=== PATIENT | male | born 1950 ===

== ENCOUNTER → 2020-08-28 09:43 | Outpatient (BNVA) | payer BC, MEDICARE, SELFPAY | PROVIDERS: PCP Internal Medicine; Visit Provider Hospitalist ==

== ENCOUNTER 2020-12-30 07:51 | Outpatient (REF) | payer BC, MEDICARE, SELFPAY ==
[2020-12-30 08:55] LABS: ABG pCO2 TC 42 mmHg (32-45); ABG pH TC 7.42 (7.35-7.45); ABG pO2 TC 76 (83-108)
[2020-12-30 08:56] LABS: ABG Refer to POC result; ABG HCO3 28 mmol/L (22-26)
--- NOTE | 2020-12-30 15:14 | PFT_ITS ---
Forced vital capacity moderately reduced. FEV1, [id number], and MVV are all markedly reduced. Post bronchodilator therapy, there is significant improvement in FVC, FEV1, and [id number]. Total lung capacity is normal. Residual volume moderately increased. Diffusion capacity is markedly decreased. CONCLUSION: Severe obstructive airway disorder. Good response to bronchodilator therapy. These findings are consistent with asthma/COPD overlap syndrome. Diffusion capacity is markedly decreased consistent with pulmonary emphysema. Clinical correlation is recommended. Misty Yancey MD MSB/MODL / [id number]
== END 2020-12-30 07:52 | disposition home or self-care (01) ==
LOC: HO.RESP 07:51
PROVIDERS: PCP Internal Medicine; Visit Provider Hospitalist
DX: J44.9 Chronic obstructive pulmonary disease, unspecified (principal)
CPT/HCPCS: 36600; 82803; 94060; 94727; 94729

== ENCOUNTER 2021-01-20 07:21 | Outpatient (REF) | payer BC, MEDICARE, SELFPAY ==
--- NOTE | ~2021-01-20 | CT_ITS ---
EXAMINATION: CT CHEST WITHOUT CONTRAST CLINICAL INFORMATION: Other nonspecific abnormal finding of lung field. COMPARISON: CT chest from 02/07/2020 and 06/14/2019. TECHNIQUE: Multidetector volumetric CT imaging of the chest was done. Axial MIP volume rendering provided. Sagittal and coronal reformatted images were obtained. This CT examination was performed using dose optimization techniques as appropriate, variously including the following: *Automated exposure control *Adjustment of mA and/or kV according to patient size (this includes techniques or standardized protocols for targeted exams where dose is matched to indication/reason for exam; i.e. extremities or head) *Use of iterative reconstruction technique DLP: 308 mGy-cm FINDINGS: RECORDING ARTIST: Unremarkable. LUNGS: Moderate changes of centrilobular emphysema are again noted. There is stable atelectasis or scarring in the lingula. A few scattered punctate bilateral calcified granulomas are noted. A 2 mm subpleural nodule in the right upper lobe (series 4, image 237), is unchanged. A 5 mm nodule in the right upper lobe (image 285) is unchanged. An 8 mm nodule in the superior segment of the right lower lobe (image 463) is unchanged. A 5 mm nodule in the posterior right lower lobe (image 532) is unchanged. There is a possible new tiny 3 mm semisolid nodule in the right lower lobe (image 502). A possible 4 mm nodule in the left upper lobe (image 311) is unchanged. MEDIASTINUM: There is no mediastinal or hilar adenopathy. Prominent atherosclerotic calcifications in the thoracic aorta and coronary arteries are again noted. The thyroid gland is unremarkable. PLEURA: There is no pleural effusion. No pleural mass or thickening. AXILLA: No lymphadenopathy. UPPER ABDOMEN: Unremarkable. OSSEOUS STRUCTURES: There has been interval healing of a T8 vertebral body compression fracture. A possible hemangioma in the T8 vertebral body is again noted and unchanged. CT/CT chest wo con IMPRESSION: 1. Possible new tiny 3 mm semisolid nodule in the right lower lobe. Otherwise, no significant interval change in bilateral pulmonary nodules. Recommend attention on follow-up. 2. No significant change in moderate centrilobular emphysema. 3. Interval healing of a T8 vertebral body fracture.
== END 2021-01-20 07:22 | disposition home or self-care (01) ==
LOC: HO.CT 07:21
PROVIDERS: Visit Provider Hospitalist
DX: R91.8 Other nonspecific abnormal finding of lung field (principal)
CPT/HCPCS: 71250

== ENCOUNTER → 2021-06-25 10:44 | Outpatient (BNVA) | payer BC, MEDICARE, SELFPAY | PROVIDERS: PCP Hospitalist; Visit Provider Hospitalist | DX: J45.909 Unspecified asthma, uncomplicated (principal) | CPT/HCPCS: 94618 ==

== ENCOUNTER 2021-09-01 09:00 | Outpatient (REF) | payer BC, MEDICARE, SELFPAY ==
--- NOTE | ~2021-09-01 | CT_ITS ---
EXAMINATION: CT CHEST WITHOUT CONTRAST CLINICAL INFORMATION: 71-year-old male with pulmonary nodule COMPARISON: 01/20/2021 and 02/07/2020 TECHNIQUE: Multidetector volumetric CT imaging of the chest was done. Axial MIP volume rendering provided. Sagittal and coronal reformatted images were obtained. This CT examination was performed using dose optimization techniques as appropriate, variously including the following: *Automated exposure control *Adjustment of mA and/or kV according to patient size (this includes techniques or standardized protocols for targeted exams where dose is matched to indication/reason for exam; i.e. extremities or head) *Use of iterative reconstruction technique DLP: 297 mGy-cm FINDINGS: STEP FINISHER: Unremarkable LUNGS: There are changes of emphysema and COPD with large bulla in the right middle lobe. There is a growing right upper lobe nodule seen on image 26 series 4, measures 0.8 x 0.8 x 0.8 cm. The nodule in the right lower lobe adjacent to the fissure is stable. There is new 3 mm nodule in the right lower lobe and stable punctate subpleural nodule in the right MEDIASTINUM: There is no mediastinal lymphadenopathy. There is no cardiomegaly or pericardial effusion. PLEURA: There is no pleural effusion. No pleural mass or thickening. AXILLA: No lymphadenopathy. UPPER ABDOMEN: Unremarkable. OSSEOUS STRUCTURES: Unremarkable. CT/CT chest wo con IMPRESSION: Changes of emphysema with multiple lung nodules. Growing right upper lobe nodule measured 0.8 cm and new 3 mm nodule. Fleischner guidelines were followed.
== END 2021-09-01 09:01 | disposition home or self-care (01) ==
LOC: HO.CT 09:00
PROVIDERS: PCP Family Medicine; Visit Provider Hospitalist
DX: R91.8 Other nonspecific abnormal finding of lung field (principal)
CPT/HCPCS: 71250

== ENCOUNTER → 2021-09-23 09:30 | Outpatient (BNVA) | payer BC, MEDICARE, SELFPAY | PROVIDERS: PCP Family Medicine; Visit Provider Hospitalist | DX: J45.909 Unspecified asthma, uncomplicated (principal) | CPT/HCPCS: 94618 ==

== ENCOUNTER 2021-10-21 11:18 | Outpatient (REF) | payer BC, MEDICARE, SELFPAY ==
--- NOTE | ~2021-10-21 | PE_ITS ---
EXAMINATION: PET/CT SKULL TO THIGH CLINICAL INFORMATION: Right upper lobe increasing nodule. Stable right lower lobe nodules. COMPARISON: CT chest 09/01/2021. TECHNIQUE: Following intravenous administration of 20.1 mCi of F-18 FDG in the left antecubital vein, whole-body emission scan was obtained approximately 60 minutes later. 3.[address] transmission scan was obtained without oral or IV contrast for correlative imaging. 3-D and color fusion images were obtained on a separate workstation. Baseline glucose measures 104. DLP is 988 mGy-cm. FINDINGS: SKULL BASE AND NECK: There is no abnormal FDG uptake seen in the skull base, intracranial visualized brain parenchyma or the neck. On CT, the lateral ventricles are symmetrical. No brain parenchymal abnormality seen. The paranasal sinuses are clear. Both bony orbits, optic globe and optic nerve are stable. No abnormal neck lymph nodes or mass seen. Visualized salivary glands are stable. The nasopharynx and nasal cavity airway are widely patent. CHEST: Previously visualized right upper lobe posterior segment nodule is visualized measuring 8 mm. There is mild metabolic activity measuring 1.69, similar to background. Lesion seen in the right lower lobe adjacent to the major fissure has resolved and is not visualized on the PET or the CT exam. Additional nodules seen in the right lower lobe on previous CT axial image 45/4 and axial image 49/4 are not visualized on the present PET study. No abnormal metabolic activity seen in either nodule. No abnormal activity seen in the mediastinum or the axilla. On CT, there is diffuse centrilobular emphysema with bullous changes in the right middle lobe. There is atelectatic changes or scarring left upper lobe lateral segment, right middle lobe and lingula. The mediastinum appears unremarkable. There is no pleural effusion. ABDOMEN AND PELVIS: There is no abnormal metabolic activity seen in the abdomen and pelvis. Normal metabolic activity seen in the kidneys and bladder. Nonspecific metallic activity seen in the sigmoid colon. On CT, there is diffuse colonic diverticulosis, most prominent in the sigmoid region with mild mural thickening. No pericolic fat stranding seen. Visualized liver, spleen, pancreas and bilateral adrenal glands are unremarkable. There are no radiopaque gallstones. There is a punctate radiopaque density midpole right kidney, question tiny stone, on axial slice 107/2. MSK: There is mild ventral spondylosis lower dorsal and upper lumbar spine. No aggressive lytic or sclerotic process. No abnormal FDG activity seen. PET/PET CT fusion skull to thigh IMPRESSION: There are at least 3 nodules seen in the right lung which are not metabolically active on the PET study. There is an 8 mm nodule right upper lobe axial image 187/2 and a punctate nodules in the right lower lobe on axial image 156/2 and 148/2. These nodules are not metabolically active. The other nodule described on the previous CT chest in the right lower lobe adjacent to major fissure has resolved and is not visualized. There is focal emphysematous bulla in right middle lobe. There is diffuse emphysema. Diffuse colonic diverticulosis with mild FDG activity diverticulosis, less likely diverticulitis.
== END 2021-10-21 11:19 | disposition home or self-care (01) ==
LOC: HO.PET 11:18
PROVIDERS: PCP Family Medicine; Visit Provider Hospitalist
DX: Z13.89 Encounter for screening for other disorder (principal)

== ENCOUNTER 2021-12-14 07:24 | Outpatient (REF) | payer BC, MEDICARE, SELFPAY ==
--- NOTE | ~2021-12-14 | CT_ITS ---
EXAMINATION: CT CHEST WITHOUT CONTRAST CLINICAL INFORMATION: Abnormal lung finding. Followup lung nodules. COMPARISON: PET/CT exam 10/21/2021. TECHNIQUE: Multidetector volumetric CT imaging of the chest was done. Axial MIP volume rendering provided. Sagittal and coronal reformatted images were obtained. This CT examination was performed using dose optimization techniques as appropriate, variously including the following: *Automated exposure control *Adjustment of mA and/or kV according to patient size (this includes techniques or standardized protocols for targeted exams where dose is matched to indication/reason for exam; i.e. extremities or head) *Use of iterative reconstruction technique DLP: 291 mGy-cm FINDINGS: PARTS EXPEDITER: Unremarkable. LUNGS: Previously seen right upper lobe 8 mm nodule is again visualized and measures 8 mm on axial image 246/7. It is unchanged in size from previous PET/CT exam and CT chest exam, as well. A 2 mm linear density subpleural location right upper lobe axial image 197/7 is stable. A triangular-shaped 6 mm nodule adjacent to the major fissure in right lower lobe is stable. There is dense lingular band-like atelectasis. A 4 mm nodule right lower lobe axial image 446/7 and a 6 mm nodule right lung base axial image 476/7. One of the 2 nodules was visualized on image 46/4 on 09/01/2021. Medially located second nodule was visualized on the PET study 10/21/2021. There is mild centrilobular emphysema. MEDIASTINUM: The heart size and the great vessels are normal caliber. The thyroid lobes are symmetric and normal. The central trachea and bronchi are widely patent. No abnormal sized mediastinal lymph nodes seen. There is mild coronary artery calcifications present. No pericardial effusion seen. PLEURA: There is no pleural effusion. No pleural mass or thickening. AXILLA: Small shotty lymph nodes seen in the axilla. The chest wall is unremarkable. UPPER ABDOMEN: The visualized liver, spleen, pancreas, bilateral adrenal glands, and kidneys are unremarkable. There is colonic diverticulosis without diverticulitis. OSSEOUS STRUCTURES: There is moderate spondylosis of lower dorsal and upper lumbar spine. CT/CT chest wo con IMPRESSION: Mild centrilobular emphysema with pulmonary nodules. The 2 right lower lobe pulmonary nodules are visualized either on the last PET/CT study 10/21/2021 or 09/01/2021 CT chest. These nodules are better visualized on the present exam and may be minimally increased in size. However, there is no FDG uptake seen on the PET study. Recommend continued CT chest followup. Fleischner guidelines were followed.
== END 2021-12-14 07:25 | disposition home or self-care (01) ==
LOC: HO.CT 07:24
PROVIDERS: PCP Family Medicine; Visit Provider Hospitalist
DX: R91.8 Other nonspecific abnormal finding of lung field (principal)
CPT/HCPCS: 71250

== ENCOUNTER 2022-06-04 07:52 | Outpatient (REF) | payer BC, MEDICARE, SELFPAY ==
--- NOTE | ~2022-06-04 | CT_ITS ---
EXAMINATION: CT CHEST WITHOUT CONTRAST CLINICAL INFORMATION: Pulmonary nodule COMPARISON: Chest CT 12/14/2021 TECHNIQUE: Multidetector volumetric CT imaging of the chest was done. Axial MIP volume rendering provided. Sagittal and coronal reformatted images were obtained. This CT examination was performed using dose optimization techniques as appropriate, variously including the following: *Automated exposure control *Adjustment of mA and/or kV according to patient size (this includes techniques or standardized protocols for targeted exams where dose is matched to indication/reason for exam; i.e. extremities or head) *Use of iterative reconstruction technique DLP: 264 mGy-cm FINDINGS: The heart is normal in size. Coronary calcifications are present. There is no pericardial effusion. Normal caliber thoracic aorta. A few normal-sized mediastinal lymph nodes appear similar. No gross hilar lymphadenopathy. No pathologically enlarged axillary lymph nodes. Central airways are patent. Lungs are well aerated. Mild emphysematous changes are noted. Similar atelectasis versus scarring within the lingula and right middle lobe. A few previously visualized subcentimeter pulmonary nodules are stable, the largest remains an 8 mm right upper lobe pulmonary nodule. No new suspicious pulmonary nodules visualized. Visualized portions of the upper abdomen are grossly unremarkable. Moderate diffuse degenerative changes of the spine. CT/CT chest wo IV con IMPRESSION: A few previously visualized subcentimeter pulmonary nodules are stable, the largest remains an 8 mm right upper lobe pulmonary nodule. No new suspicious pulmonary nodules visualized. Fleischner guidelines were followed.
== END 2022-06-04 07:53 | disposition home or self-care (01) ==
LOC: HO.CT 07:52
PROVIDERS: Visit Provider Hospitalist
DX: R91.8 Other nonspecific abnormal finding of lung field (principal)
CPT/HCPCS: 71250

== ENCOUNTER 2022-06-08 08:49 | Outpatient (REF) | payer BC, MEDICARE, SELFPAY ==
--- NOTE | 2022-06-08 10:56 | PFT_ITS ---
Forced vital capacity 41%, FEV1 of 20%, FEV1/FVC ratio 36. LLE89-47 is 35% and MVV 20%. Post bronchodilator therapy, there is a significant improvement in all flow volumes. Total lung capacity 94%. Residual volume 181%. Diffusion capacity 40%. CONCLUSION: Very severe obstructive airway disorder with evidence of air trapping. There is an excellent response to bronchodilator therapy, but it did not result in complete reversibility. These findings are consistent with asthma/COPD overlap syndrome. Clinical correlation is recommended. MD OSBALDO Walker/MODL / [id number]
== END 2022-06-08 08:50 | disposition home or self-care (01) ==
LOC: HO.RESP 08:49
PROVIDERS: Visit Provider Hospitalist
DX: R91.8 Other nonspecific abnormal finding of lung field (principal)
CPT/HCPCS: 94060; 94727; 94729

== ENCOUNTER → 2022-06-30 08:24 | Outpatient (BNVA) | payer BC, MEDICARE, SELFPAY | PROVIDERS: PCP Family Medicine; Visit Provider Hospitalist | DX: J45.909 Unspecified asthma, uncomplicated (principal) ==

== ENCOUNTER → 2022-10-13 08:56 | Outpatient (BNVA) | payer MEDICARE, BC, SELFPAY | PROVIDERS: PCP Family Medicine; Visit Provider Nurse Practitioner Family ==

== ENCOUNTER 2022-11-02 07:20 | Outpatient (REF) | payer BC, MEDICARE, SELFPAY ==
--- NOTE | ~2022-11-02 | CT_ITS ---
EXAMINATION: CT CHEST WITHOUT CONTRAST CLINICAL INFORMATION: Pulmonary nodule. COMPARISON: Multiple priors, most recently chest CT 06/04/2022. TECHNIQUE: Multidetector volumetric CT imaging of the chest was done. Axial MIP volume rendering provided. Sagittal and coronal reformatted images were obtained. This CT examination was performed using dose optimization techniques as appropriate, variously including the following: *Automated exposure control *Adjustment of mA and/or kV according to patient size (this includes techniques or standardized protocols for targeted exams where dose is matched to indication/reason for exam; i.e. extremities or head) *Use of iterative reconstruction technique DLP: 307 mGy-cm FINDINGS: LUNGS: Moderate centrilobular emphysema. Airway wall thickening consistent with chronic airways disease. No consolidation. Scarring in the lingula. 8.5 mm average diameter nodule in the right upper lobe series 5 image 228 is stable. 6 mm nodule right lower lobe series 5 image 408 is stable. 4 mm subpleural nodule right lower lobe series 5 image 499. Additional scattered nodules are stable. MEDIASTINUM: No adenopathy. No pericardial effusion. CORONARY ARTERY CALCIFICATION: Present. Mild three-vessel calcium. PLEURA: There is no pleural effusion. No pleural mass or thickening. AXILLA: No lymphadenopathy. UPPER ABDOMEN: Unremarkable. OSSEOUS STRUCTURES: Degenerative changes in the spine. CT/CT chest wo IV con IMPRESSION: Emphysema. Stable 8.5 mm average diameter nodule in the right upper lobe. Additional 6 mm nodule and scattered nodules seen previously are stable. New 4 mm nodule right lower lobe. Recommend continued chest CT follow-up. Fleischner guidelines were followed.
== END 2022-11-02 07:21 | disposition home or self-care (01) ==
LOC: HO.CT 07:20
PROVIDERS: PCP Family Medicine; Visit Provider Hospitalist
DX: R91.8 Other nonspecific abnormal finding of lung field (principal)
CPT/HCPCS: 71250

== ENCOUNTER 2022-12-29 08:14 | Outpatient (AMB) | payer BC, MEDICARE, SELFPAY ==
--- NOTE | 2022-12-29 08:24 | MHC.OFFVIS ---
Intake Vital Signs 12/29/22 08:29 Height 5 ft 10 in Weight 240 lb BMI 34.4 Pulse 82 Pulse Source Pulse Oximeter Pulse Oximetry (%) 85 L Oxygen Delivery Method Room Air Intake Visit Reasons: COPD Health Information Coder Required: No Allergies No Known Allergies Allergy (Verified 12/29/22 08:30) HPI HPI Comments History of Present Illness Details The patient is a 72-year-old gentleman known COPD, ELVIA on PAP therapy and tobacco dependency. He also has underlying pulmonary nodules that we have been following. His last CT scan of the chest at [facility] was done in September of 2018. His largest nodule measured 8 mm at that time. Also the nodule appeared to be subsolid nature. Recently he had a fall after losing consciousness. He did injure his lung on the right side with some increased work of breathing. He continues to smoke unfortunately. The patient was recently evaluated at [facility] for lower extremity swelling and shortness of breath. He had an ultrasound of his right lower extremity which demonstrated no evidence of any DVT and had a CT angiogram of the chest burning up pulmonary embolism. However, the nodule appeared to be more solid in nature now measuring 9 mm. This is concerning for a both change in growth and change in appearance in a short period of time. The patient does smoke and does have increased risk factors for cancer. At this point I will request a PET scan to further evaluate this nodule. At this point will going to go ahead and order her oxygen through a [employer] company for him to be able to use the oxygen with activity. The patient needs better portability. Will provide him with a conserving device trial in order for him to get smaller tanks. His PET scan was denied from his your insurance company for the 9 mm nodule for unclear reason. At this point the patient should get a CAT scan 3 months from his prior CT scan in March 16. If the nodule is larger in size and we need to get a PET scan at that time. 07/11/2019 The patient is here for pulmonary follow-up visit. Overall he is doing well. He has tried to quit smoking. He is very motivated. Since he trying to quit smoking he has gained over 10 lb. He is down to 5 cigarettes a day. He is going to start walking and exercising more. He does have the oxygen. He needs to use the oxygen with activity in exercise to improve his exercise capacity. He has been using his respiratory therapy. We did repeat a CT scan of the chest since his PET scan was denied. It appeared that the nodules decreased in size largest nodule measuring now 6 mm. His next CAT scan should be 6-12 months so therefore we doing around 8 months. He has been using the BiPAP. The BiPAP therapy has been affecting beneficial. He uses for more than 4 hours a night. He did get a new mask and is getting used to it. 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 Appears to be improving his ectopy. He also had an EKG or some type of cardiac study that document that he probably had an old myocardial infarction. Clinically is doing well. 02/20/2020 the patient is here for pulmonary follow-up visit. Overall the patient has been doing okay. He continues to have productive cough moderate severity. He is on maximum respiratory therapy with only partial resolution of the symptoms. He is participating back in pulmonary rehabilitation which has been helpful for him. At this point based on his frequent exacerbations in chronic bronchitis he will benefit from Daliresp. In addition to that he will need a nebulizer treatment to improve his respiratory status and mucus clearance. He has been using the CPAP. The CPAP therapy has been affecting beneficial. He has been using more than 4 hours a night. We did review his CT scan of the chest demonstrating stable pulmonary nodules. We did review it ourselves demonstrating moderate degree of emphysema. The patient is still struggling to quit completely from the smoking. He knows he needs to quit and will continue cutting down. 08/28/2020 the patient is here for pulmonary follow-up visit. He continues to have shortness of breath. He has been noticing improvement when he uses the nebulizer. He is trying to use it once or twice a day. We went over his medications as far as his inhalers and did provide a scheduled for him that he could take home. In the meantime the patient has gained some weight. He understands the weight gain is going to make his breathing worse. Is going to start exercising walking. He still tries to continues to cut down the smoking. Addition to has been using the BiPAP. The BiPAP therapy has been affecting beneficial. He is wondering if he needs a noninvasive ventilator. I have reassured him does not have to be the case. Will have him get a pulmonary function study with a blood gas to assess his pCO2. If his pCO2 is elevated we consider noninvasive ventilator. 12/30/2020 the patient is here for a pulmonary follow-up visit. Since we last spoke the patient has been struggling with the of his niece. This is very hard for him. In the meantime continues to have shortness of breath and dyspnea on exertion. Usually his symptoms are moderate severity. However, it to get better when he rests. The patient is really not interested in oxygen right now specially with everything going on although he may be interested in the future. Right now is still able to do the things he likes to do without any of oxygen. We did review his recent pulmonary function studies demonstrating a very severe obstruction in addition to an ABG demonstrating a normal gas exchange with a decrease in the PaO2. but, is reassuring that his CO2 is within normal limits on his BIPAP. Therefore, will continue with current respiratory regimen. in the meantime we did discuss his last CT scan of the chest that he had back in January 2020 demonstrating pulmonary nodules. The patient is high risk for cancer therefore, I will request a repeat CT scan of the chest the fall 2020 follow up the pulmonary nodules then. 06/25/2021 the patient is here for hospital follow-up visit. Patient apparently developed significant chills and rigors. He was admitted to [facility] where he was found to have an E coli bacteremia. The source of the bacteremia still not clear. He still getting antibiotics. Part of the workup included a CT scan of the chest and also the abdomen and pelvis. Appeared that he had a new irregular shape 1 cm nodular density in the right hemithorax. We did compared to his previous CT scan that he had over the summer and this area is definitely new. The other nodules were in their present. It appeared that this area could be a localized infection. Explained to the patient that is very unlikely that it started as a primary E coli pneumonia. In the meantime he was prescribed oxygen. We did go for walking oximetry today. The patient did not qualify for a conserving tank as of yet. But at least he can use the oxygen just with activity. He does have a pulse oximeter and he can make sure that his level stay within 90%. I will send a medications to the pharmacy. A him come back in 3 months time and have a repeat CT scan to address the new 1 cm irregular nodular density. 09/23/2021 the patient is here for pulmonary follow-up visit. Overall he is starting to feel better. He still having some shortness of breath. He has actually gained some weight. He did have reviewed CT scan of the chest. We did review multiple scans including the CT scan from [place] from December 2020 where he did not have any significant findings on the right upper lobe. Subsequently after they had a CT scan a [facility] sometime in May 2021 when he had of severe E coli sepsis and he had a a cm irregular shaped nodular density in the right upper lobe. Now we did compared does CT scans the CT scan he just had August 2021 demonstrating a 0.8 mm pulmonary nodule. It appears to be circumscribed and less irregular when compared to the CT scan from [facility]. It also appears to be just slightly smaller when compared to the CT scan from [facility]. The patient does have extensive emphysema in that area as well. based on the fact that the nodule appears to be slightly smaller and shirt cleaner when compared to the CT scan from [facility] just a couple months ago will go ahead and plan to repeat the CT scan in 3-4 months. The patient does have high risk for pneumothorax and also has significant and is already on oxygen making the idea of an aggressive resection difficult. Will go ahead and% among conference but at this point the plan will be to repeat the CT scan in the coming months to assess further. 01/06/2022 the patient is here for a pulmonary follow-up visit. Overall he is doing about the same. Continues to have dyspnea on exertion moderate severity. He is on a good respiratory regimen. He does get response from the therapy. He would like to continue on his current therapy. He does uses nebulizer 3 to 4 times a day which does help. He was open to get a June system to better administer the nebulized therapy. We will request from from the [employer]. He continues use the BiPAP at nighttime. The air leaks out from the mass sometimes. The patient may benefit from new mask. He continues use the oxygen with activity. The patient needs to use it more regularly. He also needs to start exercising more regularly. He will do so and we will use the oxygen during those times. We did review his CT scan of the chest which is about the same as far as the right lower lobe pulmonary nodules. The patient will have a repeat CT scan in 6 months. Will also check his PFTs. 06/30/2022 the patient is here for a pulmonary follow-up visit. He continues to have dyspnea on exertion. Moderate severity. He is supposed to be using the oxygen but he does not like to use his oxygen tanks. He is trying to get a portable oxygen concentrator that can handle to 3 L pulse. We did talk about different devices. In the meantime I explained to him that the fact that he does not have his oxygen could result in catastrophic cardiac or cerebellar complications. The patient also continues smoking cigarettes. He understands that his respiratory capacity is only getting worse. The cigarettes are going to continue to make it even worse. He did have pulmonary function studies with an FEV1 of only 30% predicted after bronchodilator effect. It is consistent with very severe COPD picture. We also reviewed his last CT scan of the chest demonstrating his 8 mm pulmonary nodule has not changed in size. Other nodules appear to be stable. Based on the size in his risk will go ahead and repeat the CT scan in 6 months. 12/29/2022 the patient is here for a pulmonary follow-up visit. He continues to have shortness of breath. He has been using the oxygen. He is also using the BiPAP at nighttime. The PAP therapy continues to be affecting beneficial. The nebulizer as well. His nebulizer equipment is broken. I will supply him with 1. He still getting supplies also from [employer]. He does have a nebulizer for map is about 2 to 3 years old. If the machine stops working he will cough in order to send another script. The patient did have a CT scan sometime in October. The pulmonary nodules are stable. When follow-up in 6 months and discuss his next CT scan. The patient did have a new 4 mm pulmonary nodule. He also has extensive emphysema. He has a large bolus in the right lower lobe measuring close to 10 cm in size. [facility] Medical History (Updated 10/13/22 @ 09:58 by Naomie Nicholson NP) COPD (chronic obstructive pulmonary disease) ELVIA treated with BiPAP Pulmonary nodule Pulmonary nodules Tobacco dependence Social History (Updated 06/25/21 @ 10:59 by RAMANA Mcfadden) Patient Tobacco Use Status: Former Tobacco user Tobacco use type: Cigarette Years Smoked: 12 years old Review of Systems Const Denies night sweats and Reports weight gain ENT Denies change in voice, Denies lip swelling, Denies mouth pain, Reports nasal congestion, Reports nasal discharge and Denies tongue swelling Card Denies chest pain and Reports dyspnea on exertion Resp Reports cough and Reports dyspnea on exertion GI Denies abdominal pain Musc Denies no additional complaints Neuro Denies Neuro-related abnormal movements Psych Denies no additional complaints Romeo/Lymph Denies easy bleeding and Denies lymphadenopathy Aller/Immun Denies lip swelling and Denies tongue swelling Physical Exam Vital Signs: Last Vital Signs Pulse 82 12/29/22 08:29 Pulse Ox 85 L 12/29/22 08:29 Oxygen Delivery Method Room Air 12/29/22 08:29 BMI result Body Mass Index 34.4 Const General: alert Neck Neck: Yes normal visual inspection, Yes full ROM and Yes no lymphadenopathy Chest Chest palpation & inspection: normal inspection of the chest Resp Auscultation: no wheezes and diminished lung sounds Cardio Rate: regular rate Rhythm: regular rhythm Heart sounds: S1 normal heart sound present and S2 normal heart sound present GI Palpation (GI): Soft to palpation and nontender Auscultation: normal bowel sounds Skin General skin exam: rashes and/or lesions noted Assessment & Plan Assessment & Plan (1) Pulmonary nodules: Code(s): R91.8 - Other nonspecific abnormal finding of lung field (2) Tobacco dependence: Code(s): F17.200 - Nicotine dependence, unspecified, uncomplicated (3) ELVIA treated with BiPAP: Code(s): G47.33 - Obstructive sleep apnea (adult) (pediatric) (4) COPD (chronic obstructive pulmonary disease): Comment: extensive emphysema, FEV1 30% Code(s): J44.9 - Chronic obstructive pulmonary disease, unspecified Qualifiers: COPD type: emphysema Emphysema type: centrilobular Qualified Code(s): J43.2 - Centrilobular emphysema Plan continue Breztri continue DuoNeb as needed requesting june system continue Combivent Tobacco cessation restart Daliresp Continue BIPAP at night continue oxygen with activity. Repeat CT scan of the chest in 12 months or sooner if any worsening symptoms follow-up in 6 months Orders: Orders CT chest wo IV con 10/24/23 R91.8 - Other nonspecific abnormal finding of lung field Medications: Refilled albuterol sulfate 90 mcg/actuation 2 puffs inhalation Q4H PRN 8.5 ea 11RF for wheezing albuterol sulfate 2.5 mg (3 mL) inhalation Q6H PRN 150 mL 11RF for wheezing J41.8 - Mixed simple and mucopurulent chronic bronchitis bfhkrnazlp-cuthzbnk-qrxtwywygz 160-9-4.8 mcg/actuation (Breztri Aerosphere) 2 inhalations inhalation BID 10.7 grams 11RF 30 days Discontinued Symbicort 160-4.5 mcg/actuation (budesonide-formoterol) Discontinued Reason: Doctor's Order 2 puffs PO BID 10.2 ea 11RF NS Quality Reporting (2019) Adult ([facility] 13807/14/68) Smoking risk assessment performed?: Yes Patient Tobacco Use Status: Former Tobacco user Coding Level of Care Code Est Pt Level 4 (72323) Diagnoses Pulmonary nodules R91.8 Tobacco dependence F17.200 ELVIA treated with BiPAP G47.33 COPD (chronic obstructive pulmonary disease) J43.2 COPD type: emphysema Emphysema type: centrilobular Time Spent (min) 18
[2022-12-29 08:29] VITALS: PULSE 82; O2SAT 85; BMI 34.4
== END 2022-12-29 08:52 | disposition home or self-care (01) ==
PROVIDERS: PCP Family Medicine; Visit Provider Hospitalist
DX: R91.8 Other nonspecific abnormal finding of lung field (principal); F17.200 Nicotine dependence, unspecified, uncomplicated; G47.33 Obstructive sleep apnea (adult) (pediatric); J43.2 Centrilobular emphysema
CPT/HCPCS: 99214

== ENCOUNTER → 2022-12-29 08:14 | Outpatient (BNVA) | payer BC, MEDICARE, SELFPAY | PROVIDERS: PCP Family Medicine; Visit Provider Hospitalist | DX: J45.909 Unspecified asthma, uncomplicated (principal); J44.9 Chronic obstructive pulmonary disease, unspecified ==

== ENCOUNTER 2023-07-06 08:21 | Outpatient (AMB) | payer BC, MEDICARE, SELFPAY ==
[2023-07-06 08:26] VITALS: PULSE 81; O2SAT 88; BMI 34.4
--- NOTE | 2023-07-06 08:26 | MHC.OFFVIS ---
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 He also has underlying pulmonary nodules that we have been following. His last CT scan of the chest at [facility] was done in September of 2018. His largest nodule measured 8 mm at that time. Also the nodule appeared to be subsolid nature. Recently he had a fall after losing consciousness. He did injure his lung on the right side with some increased work of breathing. He continues to smoke unfortunately. The patient was recently evaluated at [facility] for lower extremity swelling and shortness of breath. He had an ultrasound of his right lower extremity which demonstrated no evidence of any DVT and had a CT angiogram of the chest burning up pulmonary embolism. However, the nodule appeared to be more solid in nature now measuring 9 mm. This is concerning for a both change in growth and change in appearance in a short period of time. The patient does smoke and does have increased risk factors for cancer. At this point I will request a PET scan to further evaluate this nodule. At this point will going to go ahead and order her oxygen through a [employer] company for him to be able to use the oxygen with activity. The patient needs better portability. Will provide him with a conserving device trial in order for him to get smaller tanks. His PET scan was denied from his your insurance company for the 9 mm nodule for unclear reason. At this point the patient should get a CAT scan 3 months from his prior CT scan in March 16. If the nodule is larger in size and we need to get a PET scan at that time. 06/25/2021 the patient is here for hospital follow-up visit. Patient apparently developed significant chills and rigors. He was admitted to [facility] where he was found to have an E coli bacteremia. The source of the bacteremia still not clear. He still getting antibiotics. Part of the workup included a CT scan of the chest and also the abdomen and pelvis. Appeared that he had a new irregular shape 1 cm nodular density in the right hemithorax. We did compared to his previous CT scan that he had over the summer and this area is definitely new. The other nodules were in their present. It appeared that this area could be a localized infection. Explained to the patient that is very unlikely that it started as a primary E coli pneumonia. In the meantime he was prescribed oxygen. We did go for walking oximetry today. The patient did not qualify for a conserving tank as of yet. But at least he can use the oxygen just with activity. He does have a pulse oximeter and he can make sure that his level stay within 90%. I will send a medications to the pharmacy. A him come back in 3 months time and have a repeat CT scan to address the new 1 cm irregular nodular density. 09/23/2021 the patient is here for pulmonary follow-up visit. Overall he is starting to feel better. He still having some shortness of breath. He has actually gained some weight. He did have reviewed CT scan of the chest. We did review multiple scans including the CT scan from [facility] from December 2020 where he did not have any significant findings on the right upper lobe. Subsequently after they had a CT scan a [facility] sometime in May 2021 when he had of severe E coli sepsis and he had a a cm irregular shaped nodular density in the right upper lobe. Now we did compared does CT scans the CT scan he just had August 2021 demonstrating a 0.8 mm pulmonary nodule. It appears to be circumscribed and less irregular when compared to the CT scan from [facility]. It also appears to be just slightly smaller when compared to the CT scan from [facility]. The patient does have extensive emphysema in that area as well. based on the fact that the nodule appears to be slightly smaller and shallot cleaner when compared to the CT scan from [facility] just a couple months ago will go ahead and plan to repeat the CT scan in 3-4 months. The patient does have high risk for pneumothorax and also has significant and is already on oxygen making the idea of an aggressive resection difficult. Will go ahead and% among conference but at this point the plan will be to repeat the CT scan in the coming months to assess further. 06/30/2022 the patient is here for a pulmonary follow-up visit. He continues to have dyspnea on exertion. Moderate severity. He is supposed to be using the oxygen but he does not like to use his oxygen tanks. He is trying to get a portable oxygen concentrator that can handle to 3 L pulse. We did talk about different devices. In the meantime I explained to him that the fact that he does not have his oxygen could result in catastrophic cardiac or cerebellar complications. The patient also continues smoking cigarettes. He understands that his respiratory capacity is only getting worse. The cigarettes are going to continue to make it even worse. He did have pulmonary function studies with an FEV1 of only 30% predicted after bronchodilator effect. It is consistent with very severe COPD picture. We also reviewed his last CT scan of the chest demonstrating his 8 mm pulmonary nodule has not changed in size. Other nodules appear to be stable. Based on the size in his risk will go ahead and repeat the CT scan in 6 months. 12/29/2022 the patient is here for a pulmonary follow-up visit. He continues to have shortness of breath. He has been using the oxygen. He is also using the BiPAP at nighttime. The PAP therapy continues to be affecting beneficial. The nebulizer as well. His nebulizer equipment is broken. I will supply him with 1. He still getting supplies also from [employer]. He does have a nebulizer for map is about 2 to 3 years old. If the machine stops working he will cough in order to send another script. The patient did have a CT scan sometime in October. The pulmonary nodules are stable. When follow-up in 6 months and discuss his next CT scan. The patient did have a new 4 mm pulmonary nodule. He also has extensive emphysema. He has a large bolus in the right lower lobe measuring close to 10 cm in size. 07/06/2023 the patient is here for a pulmonary follow-up visit. The patient has been doing fairly well. He has been using the oxygen at 2-3 L to maintain a pulse ox above 90%. Has been affecting beneficial. He also has been using the inhalers with good adherence. He also started Daliresp 250 mcg dose and is tolerating that well. Will go ahead and increase into the 100 mcg dose. The patient also has a CT scan from October 2022 that we did look at. It appears that he has a new nodule so will go ahead and repeat the CT scan October 2023. He is still working on smoking. He is cutting down significantly. This is reassuring. Will follow-up in 4-6 months. [facility] Medical History (Updated 10/13/22 @ 09:58 by Naomie Nicholson NP) Pulmonary nodule Pulmonary nodules Tobacco dependence ELVIA treated with BiPAP COPD (chronic obstructive pulmonary disease) Social History (Updated 06/25/21 @ 10:59 by RAMANA Mcfadden) Patient Tobacco Use Status: Former Tobacco user Tobacco use type: Cigarette Years Smoked: 12 years old Review of Systems Const Denies night sweats and Reports weight gain ENT Denies change in voice, Denies lip swelling, Denies mouth pain, Reports nasal congestion, Reports nasal discharge and Denies tongue swelling Card Denies chest pain and Reports dyspnea on exertion Resp Reports cough and Reports dyspnea on exertion GI Denies abdominal pain Musc Denies no additional complaints Neuro Denies Neuro-related abnormal movements Psych Denies no additional complaints Romeo/Lymph Denies easy bleeding and Denies lymphadenopathy Aller/Immun Denies lip swelling and Denies tongue swelling Physical Exam Vital Signs: Last Vital Signs Pulse 81 07/06/23 08:26 Pulse Ox 88 L 07/06/23 08:26 Oxygen Delivery Method Room Air 07/06/23 08:26 BMI result Body Mass Index 34.4 Const General: alert Neck Neck: Yes normal visual inspection, Yes full ROM and Yes no lymphadenopathy Chest Chest palpation & inspection: normal inspection of the chest Resp Auscultation: no wheezes and diminished lung sounds Cardio Rate: regular rate Rhythm: regular rhythm Heart sounds: S1 normal heart sound present and S2 normal heart sound present GI Palpation (GI): Soft to palpation and nontender Auscultation: normal bowel sounds Skin General skin exam: rashes and/or lesions noted Assessment & Plan Assessment & Plan (1) Pulmonary nodules: Code(s): R91.8 - Other nonspecific abnormal finding of lung field (2) Tobacco dependence: Code(s): F17.200 - Nicotine dependence, unspecified, uncomplicated (3) ELVIA treated with BiPAP: Code(s): G47.33 - Obstructive sleep apnea (adult) (pediatric) (4) COPD (chronic obstructive pulmonary disease): Comment: extensive emphysema, FEV1 30% Code(s): J44.9 - Chronic obstructive pulmonary disease, unspecified Qualifiers: COPD type: emphysema Emphysema type: centrilobular Qualified Code(s): J43.2 - Centrilobular emphysema Plan continue Breztri continue DuoNeb as needed continue Combivent Tobacco cessation increase Daliresp 500 Continue BIPAP at night continue oxygen with activity. Repeat CT scan 10/2023 follow-up in 4- 6 months Orders: Orders CT chest wo IV con 10/22/23 R91.8 - Other nonspecific abnormal finding of lung field Medications: New budesonide-formoterol 160-4.5 mcg/actuation (Symbicort) 2 puffs inhalation BID 30 days 10.2 grams 11RF roflumilast (Daliresp) 500 mcg PO DAILY 30 days 30 tabs 11RF Changed From trazodone 100 mg PO BEDTIME To trazodone 100 mg PO BEDTIME 30 days 30 tabs 11RF From Combivent Respimat 20-100 mcg/actuation (ipratropium-albuterol) 1 puff PO QID 4 grams 3RF NS To Combivent Respimat 20-100 mcg/actuation (ipratropium-albuterol) 1 puff PO QID 90 days 12 grams 3RF NS Discontinued roflumilast Discontinued Reason: Doctor's Order 250 mcg PO DAILY 28 tabs 3RF J44.9 - Chronic obstructive pulmonary disease, unspecified Quality Reporting (2019) Adult ([facility] 138/07/14/68) Smoking risk assessment performed?: Yes Patient Tobacco Use Status: Former Tobacco user Coding Level of Care Code Est Pt Level 4 (82845) Diagnoses Pulmonary nodules R91.8 Tobacco dependence F17.200 ELVIA treated with BiPAP G47.33 Centrilobular emphysema J43.2 COPD type: emphysema Emphysema type: centrilobular Time Spent (min) 17
== END 2023-07-06 08:54 | disposition home or self-care (01) ==
PROVIDERS: PCP Family Medicine; Referring Provider Family Medicine; Visit Provider Hospitalist
DX: R91.8 Other nonspecific abnormal finding of lung field (principal); F17.200 Nicotine dependence, unspecified, uncomplicated; G47.33 Obstructive sleep apnea (adult) (pediatric); J43.2 Centrilobular emphysema
CPT/HCPCS: 99214

== ENCOUNTER → 2023-07-06 08:21 | Outpatient (BNVA) | payer BC, MEDICARE, SELFPAY | PROVIDERS: PCP Family Medicine; Visit Provider Hospitalist | DX: J45.909 Unspecified asthma, uncomplicated (principal); J44.9 Chronic obstructive pulmonary disease, unspecified ==

== ENCOUNTER 2023-10-24 07:43 | Outpatient (REF) | payer BC, MEDICARE, SELFPAY ==
--- NOTE | ~2023-10-24 | CT_ITS ---
EXAMINATION: CT CHEST WITHOUT CONTRAST CLINICAL INFORMATION: Pulmonary nodules. COMPARISON: CT chest 11/02/2022. TECHNIQUE: Multidetector volumetric CT imaging of the chest was done. Axial MIP volume rendering provided. Sagittal and coronal reformatted images were obtained. This CT examination was performed using dose optimization techniques as appropriate, variously including the following: *Automated exposure control *Adjustment of mA and/or kV according to patient size (this includes techniques or standardized protocols for targeted exams where dose is matched to indication/reason for exam; i.e. extremities or head) *Use of iterative reconstruction technique DLP: 261 mGy-cm FINDINGS: LUNGS: A previously seen 5 mm subpleural right lower lobe nodular density has increased in size 9 mm and is suspicious for malignancy (5:404 compare prior 5:450). This is especially apparent on coronal imaging (see saved caballero images). There is a new 6 mm pulmonary nodule at the left apex intertwined in an area of branching vessels (5:113 and saved coronal caballero image). MEDIASTINUM: The mediastinum is normal. CORONARY ARTERY CALCIFICATION: None visualized on this study. PLEURA: There is no pleural effusion. No pleural mass or thickening. AXILLA: No lymphadenopathy. UPPER ABDOMEN: Unremarkable. OSSEOUS STRUCTURES: Unremarkable. CT/CT chest wo IV con IMPRESSION: 1. Enlarging right lower lobe pulmonary nodule now measuring 9 mm. Findings are suspicious for carcinoma. 2. New 6 mm left apical pulmonary nodule. According to the UPDATED 2017 Fleischner Society recommendations, the advised follow up imaging for a single solid nodule measuring greater than [address] at 3 months, PET/CT, or tissue sampling as clinically appropriate.
== END 2023-10-24 07:44 | disposition home or self-care (01) ==
LOC: HO.CT 07:43
PROVIDERS: PCP Internal Medicine; Visit Provider Hospitalist
DX: R91.8 Other nonspecific abnormal finding of lung field (principal)
CPT/HCPCS: 71250

== ENCOUNTER 2023-11-30 08:23 | Outpatient (AMB) | payer BC, MEDICARE, SELFPAY ==
[2023-11-30 08:30] VITALS: BP 132/60; PULSE 91; O2SAT 91; BMI 34.4
--- NOTE | 2023-11-30 08:30 | A.OFFVIS_ITS ---
Vital Signs 3 11/30/23 08:30 Height 5 ft 10 in Weight 240 lb BMI 34.4 BP 132/60 Blood Pressure Location Lt brachial Position Sitting Pulse 91 Pulse Source Pulse Oximeter Pulse Oximetry (%) 91 L Oxygen Delivery Method Room Air Intake Visit Reasons: COPD Top Screw Required: No Allergies No Known Allergies Allergy (Verified 11/30/23 08:33) HPI Comments Details: The patient is a 73-year-old gentleman known COPD, ELVIA on PAP therapy and tobacco dependency. He also has underlying pulmonary nodules that we have been following. His last CT scan of the chest at [facility] was done in September of 2018. His largest nodule measured 8 mm at that time. Also the nodule appeared to be subsolid nature. Recently he had a fall after losing consciousness. He did injure his lung on the right side with some increased work of breathing. He continues to smoke unfortunately. The patient was recently evaluated at [facility] for lower extremity swelling and shortness of breath. He had an ultrasound of his right lower extremity which demonstrated no evidence of any DVT and had a CT angiogram of the chest burning up pulmonary embolism. However, the nodule appeared to be more solid in nature now measuring 9 mm. This is concerning for a both change in growth and change in appearance in a short period of time. The patient does smoke and does have increased risk factors for cancer. At this point I will request a PET scan to further evaluate this nodule. At this point will going to go ahead and order her oxygen through a [employer] company for him to be able to use the oxygen with activity. The patient needs better portability. Will provide him with a conserving device trial in order for him to get smaller tanks. His PET scan was denied from his your insurance company for the 9 mm nodule for unclear reason. At this point the patient should get a CAT scan 3 months from his prior CT scan in March 16. If the nodule is larger in size and we need to get a PET scan at that time. 06/25/2021 the patient is here for hospital follow-up visit. Patient apparently developed significant chills and rigors. He was admitted to [facility] where he was found to have an E coli bacteremia. The source of the bacteremia still not clear. He still getting antibiotics. Part of the workup included a CT scan of the chest and also the abdomen and pelvis. Appeared that he had a new irregular shape 1 cm nodular density in the right hemithorax. We did compared to his previous CT scan that he had over the summer and this area is definitely new. The other nodules were in their present. It appeared that this area could be a localized infection. Explained to the patient that is very unlikely that it started as a primary E coli pneumonia. In the meantime he was prescribed oxygen. We did go for walking oximetry today. The patient did not qualify for a conserving tank as of yet. But at least he can use the oxygen just with activity. He does have a pulse oximeter and he can make sure that his level stay within 90%. I will send a medications to the pharmacy. A him come back in 3 months time and have a repeat CT scan to address the new 1 cm irregular nodular density. 09/23/2021 the patient is here for pulmonary follow-up visit. Overall he is starting to feel better. He still having some shortness of breath. He has actually gained some weight. He did have reviewed CT scan of the chest. We did review multiple scans including the CT scan from [place] from December 2020 where he did not have any significant findings on the right upper lobe. Subsequently after they had a CT scan a [facility] sometime in May 2021 when he had of severe E coli sepsis and he had a a cm irregular shaped nodular density in the right upper lobe. Now we did compared does CT scans the CT scan he just had August 2021 demonstrating a 0.8 mm pulmonary nodule. It appears to be circumscribed and less irregular when compared to the CT scan from [facility]. It also appears to be just slightly smaller when compared to the CT scan from [facility]. The patient does have extensive emphysema in that area as well. based on the fact that the nodule appears to be slightly smaller and beer coil cleaner when compared to the CT scan from [facility] just a couple months ago will go ahead and plan to repeat the CT scan in 3-4 months. The patient does have high risk for pneumothorax and also has significant and is already on oxygen making the idea of an aggressive resection difficult. Will go ahead and% among conference but at this point the plan will be to repeat the CT scan in the coming months to assess further. 06/30/2022 the patient is here for a pulmonary follow-up visit. He continues to have dyspnea on exertion. Moderate severity. He is supposed to be using the oxygen but he does not like to use his oxygen tanks. He is trying to get a portable oxygen concentrator that can handle to 3 L pulse. We did talk about different devices. In the meantime I explained to him that the fact that he does not have his oxygen could result in catastrophic cardiac or cerebellar complications. The patient also continues smoking cigarettes. He understands that his respiratory capacity is only getting worse. The cigarettes are going to continue to make it even worse. He did have pulmonary function studies with an FEV1 of only 30% predicted after bronchodilator effect. It is consistent with very severe COPD picture. We also reviewed his last CT scan of the chest demonstrating his 8 mm pulmonary nodule has not changed in size. Other nodules appear to be stable. Based on the size in his risk will go ahead and repeat the CT scan in 6 months. 12/29/2022 the patient is here for a pulmonary follow-up visit. He continues to have shortness of breath. He has been using the oxygen. He is also using the BiPAP at nighttime. The PAP therapy continues to be affecting beneficial. The nebulizer as well. His nebulizer equipment is broken. I will supply him with 1. He still getting supplies also from [employer]. He does have a nebulizer for map is about 2 to 3 years old. If the machine stops working he will cough in order to send another script. The patient did have a CT scan sometime in October. The pulmonary nodules are stable. When follow-up in 6 months and discuss his next CT scan. The patient did have a new 4 mm pulmonary nodule. He also has extensive emphysema. He has a large bolus in the right lower lobe measuring close to 10 cm in size. 07/06/2023 the patient is here for a pulmonary follow-up visit. The patient has been doing fairly well. He has been using the oxygen at 2-3 L to maintain a pulse ox above 90%. Has been affecting beneficial. He also has been using the inhalers with good adherence. He also started Daliresp 250 mcg dose and is tolerating that well. Will go ahead and increase into the 100 mcg dose. The patient also has a CT scan from October 2022 that we did look at. It appears that he has a new nodule so will go ahead and repeat the CT scan October 2023. He is still working on smoking. He is cutting down significantly. This is reassuring. Will follow-up in 4-6 months. 11/30/2023 the patient is here for a pulmonary follow-up visit. The patient recently had CT scan of the chest which we personally reviewed. It appears that the right lower lobe demonstrates interval increasing pulmonary nodule now measuring 8 mm in size. Appears to be spiculated and concerning for malignancy. He has other pulmonary nodules that appear to be stable. He has emphysema. Unfortunately continues to smoke and is high risk for cancer. He does have significant chronic respiratory failure on oxygen so therefore a PET scan be helpful to better address the metabolic activity of this nodule seen there is any spread of disease. If the PET scan positive then will definitely need to do a biopsy of some type. Likely CT-guided biopsy. If the PET scans negative in view of his significant comorbidities and respiratory failure probably wait and repeat the CT scan in 3 months time. Will have to undergo pulmonary function studies to see what his lung capacity is but already he has known severe COPD and chronic respiratory failure. Will continue with current respiratory therapy and is going to work on tobacco cessation. [facility] Medical History (Updated 11/30/23 @ 22:46 by Brett Keith MD) Pulmonary nodule Pulmonary nodules Tobacco dependence ELVIA treated with BiPAP COPD (chronic obstructive pulmonary disease) Social History (Updated 06/25/21 @ 10:59 by RAMANA Mcfadden) Patient Tobacco Use Status: Former Tobacco user Tobacco use type: Cigarette Years Smoked: 12 years old Review of Systems Const Denies night sweats and Reports weight gain ENT Denies change in voice, Denies lip swelling, Denies mouth pain, Reports nasal congestion, Reports nasal discharge and Denies tongue swelling Card Denies chest pain and Reports dyspnea on exertion Resp Reports cough and Reports dyspnea on exertion GI Denies abdominal pain Musc Denies no additional complaints Neuro Denies Neuro-related abnormal movements Psych Denies no additional complaints Romeo/Lymph Denies easy bleeding and Denies lymphadenopathy Aller/Immun Denies lip swelling and Denies tongue swelling Physical Exam Vital Signs: Last Vital Signs Pulse 91 11/30/23 08:30 BP 132/60 11/30/23 08:30 Pulse Ox 91 L 11/30/23 08:30 Oxygen Delivery Method Room Air 11/30/23 08:30 BMI result Body Mass Index 34.4 Const General: alert Neck Neck: Yes normal visual inspection, Yes full ROM and Yes no lymphadenopathy Chest Chest palpation & inspection: normal inspection of the chest Resp Auscultation: no wheezes and diminished lung sounds Cardio Rate: regular rate Rhythm: regular rhythm Heart sounds: S1 normal heart sound present and S2 normal heart sound present GI Palpation (GI): Soft to palpation and nontender Auscultation: normal bowel sounds Skin General skin exam: rashes and/or lesions noted Quality Reporting (2019) Adult ([facility] 138///69) Smoking risk assessment performed?: Yes Patient Tobacco Use Status: Former Tobacco user Results Reviewed Results Reviewed: Assessment & Plan Assessment & Plan (1) Pulmonary nodules: Code(s): R91.8 - Other nonspecific abnormal finding of lung field Category: Medical (2) Tobacco dependence: Code(s): F17.200 - Nicotine dependence, unspecified, uncomplicated Category: Medical (3) ELVIA treated with BiPAP: Code(s): G47.33 - Obstructive sleep apnea (adult) (pediatric) Category: Medical (4) COPD (chronic obstructive pulmonary disease): Comment: extensive emphysema, FEV1 30% Code(s): J44.9 - Chronic obstructive pulmonary disease, unspecified Category: Medical Qualifiers: COPD type: emphysema Emphysema type: centrilobular Qualified Code(s): J43.2 - Centrilobular emphysema (5) Pulmonary nodule: Comment: now 9mm in size concerning for malignancy Code(s): R91.1 - Solitary pulmonary nodule Category: Medical Plan PET scan now, +positive will need abiopsy. if negative we will request a repeat CT chest in 3 months PFTs now continue Breztri continue DuoNeb as needed continue Combivent Tobacco cessation continue Daliresp 500 Continue BIPAP at night continue oxygen with activity. follow-up in 1-2 months Orders: Orders 2 PFT pulmonary function test Today R91.1 - Solitary pulmonary nodule PET CT fusion skull to thigh Today R91.1 - Solitary pulmonary nodule Medications: New 2 albuterol sulfate 90 mcg/actuation (Ventolin HFA) 2 puffs inhalation QID PRN 18 grams 11RF shortness of breath or wheezing 30 days Coding Level of Care Code Est Pt Level 5 (76311) Diagnoses Pulmonary nodules R91.8 Tobacco dependence F17.200 ELVIA treated with BiPAP G47.33 Centrilobular emphysema J43.2 COPD type: emphysema Emphysema type: centrilobular Pulmonary nodule R91.1 Time Spent (min) 45
== END 2023-11-30 09:12 | disposition home or self-care (01) ==
PROVIDERS: PCP Internal Medicine; Visit Provider Hospitalist
DX: J43.2 Centrilobular emphysema (principal); R91.8 Other nonspecific abnormal finding of lung field; G47.33 Obstructive sleep apnea (adult) (pediatric); Z87.891 Personal history of nicotine dependence
CPT/HCPCS: 99215

== ENCOUNTER → 2023-11-30 08:23 | Outpatient (BNVA) | payer BC, MEDICARE, SELFPAY | PROVIDERS: PCP Family Medicine; Visit Provider Hospitalist | DX: J45.909 Unspecified asthma, uncomplicated (principal); J44.9 Chronic obstructive pulmonary disease, unspecified; R91.8 Other nonspecific abnormal finding of lung field ==

== ENCOUNTER 2023-12-17 07:49 | Outpatient (REF) | payer BC, MEDICARE, SELFPAY ==
--- NOTE | 2023-12-17 08:00 | PFT_ITS ---
Flows: FEV1: 25 % of predicted at 0.80 L FVC: 53 % of predicted at 2.22 L FEV1/FVC: 36 % Bronchodilator response: Present Volumes: Total lung capacity: Patient unable to perform lung volumes maneuvers. Diffusion capacity: Severely decreased, adjusts to being moderately decreased after correction for alveolar ventilation. Impression: Very severe obstructive ventilatory defect with positive bronchodilator response. Patient unable to perform lung volumes maneuvers. Decreased diffusion capacity suggests emphysema. MTDD
[2023-12-17 11:04] VITALS: PULSE 79; RESP 16; O2SAT 88
== END 2023-12-17 07:50 | disposition home or self-care (01) ==
LOC: HO.RESP 07:49
PROVIDERS: PCP Internal Medicine; Visit Provider Hospitalist
DX: R91.1 Solitary pulmonary nodule (principal); J44.9 Chronic obstructive pulmonary disease, unspecified
CPT/HCPCS: 94010; 94640; 94727; 94729

== ENCOUNTER 2023-12-29 11:10 | Outpatient (AMB) | payer BC, MEDICARE, SELFPAY ==
[2023-12-29 11:11] VITALS: BP 112/58; PULSE 86; O2SAT 87; BMI 34.1
--- NOTE | 2023-12-29 11:11 | MHC.OFFVIS ---
Vital Signs 12/29/23 11:11 Height 5 ft 10 in Weight 238 lb BMI 34.1 BP 112/58 L Blood Pressure Location Rt brachial Position Sitting Pulse 86 Pulse Source Doppler Pulse Oximetry (%) 87 L Oxygen Delivery Method Room Air Intake Visit Reasons: Pulm Nodules/PFT & PET Follow Up Allergies No Known Allergies Allergy (Verified 12/29/23 11:17) HPI Comments Details: The patient is a 73-year-old gentleman known COPD, ELVIA on PAP therapy and tobacco dependency. He also has underlying pulmonary nodules that we have been following. His last CT scan of the chest at [facility] was done in September of 2018. His largest nodule measured 8 mm at that time. Also the nodule appeared to be subsolid nature. Recently he had a fall after losing consciousness. He did injure his lung on the right side with some increased work of breathing. He continues to smoke unfortunately. The patient was recently evaluated at [facility] for lower extremity swelling and shortness of breath. He had an ultrasound of his right lower extremity which demonstrated no evidence of any DVT and had a CT angiogram of the chest burning up pulmonary embolism. However, the nodule appeared to be more solid in nature now measuring 9 mm. This is concerning for a both change in growth and change in appearance in a short period of time. The patient does smoke and does have increased risk factors for cancer. At this point I will request a PET scan to further evaluate this nodule. At this point will going to go ahead and order her oxygen through a DME company for him to be able to use the oxygen with activity. The patient needs better portability. Will provide him with a conserving device trial in order for him to get smaller tanks. His PET scan was denied from his your insurance company for the 9 mm nodule for unclear reason. At this point the patient should get a CAT scan 3 months from his prior CT scan in March 16. If the nodule is larger in size and we need to get a PET scan at that time. 06/25/2021 the patient is here for hospital follow-up visit. Patient apparently developed significant chills and rigors. He was admitted to [facility] where he was found to have an E coli bacteremia. The source of the bacteremia still not clear. He still getting antibiotics. Part of the workup included a CT scan of the chest and also the abdomen and pelvis. Appeared that he had a new irregular shape 1 cm nodular density in the right hemithorax. We did compared to his previous CT scan that he had over the summer and this area is definitely new. The other nodules were in their present. It appeared that this area could be a localized infection. Explained to the patient that is very unlikely that it started as a primary E coli pneumonia. In the meantime he was prescribed oxygen. We did go for walking oximetry today. The patient did not qualify for a conserving tank as of yet. But at least he can use the oxygen just with activity. He does have a pulse oximeter and he can make sure that his level stay within 90%. I will send a medications to the pharmacy. A him come back in 3 months time and have a repeat CT scan to address the new 1 cm irregular nodular density. 09/23/2021 the patient is here for pulmonary follow-up visit. Overall he is starting to feel better. He still having some shortness of breath. He has actually gained some weight. He did have reviewed CT scan of the chest. We did review multiple scans including the CT scan from [place] from December 2020 where he did not have any significant findings on the right upper lobe. Subsequently after they had a CT scan a [facility] sometime in May 2021 when he had of severe E coli sepsis and he had a a cm irregular shaped nodular density in the right upper lobe. Now we did compared does CT scans the CT scan he just had August 2021 demonstrating a 0.8 mm pulmonary nodule. It appears to be circumscribed and less irregular when compared to the CT scan from [facility]. It also appears to be just slightly smaller when compared to the CT scan from [facility]. The patient does have extensive emphysema in that area as well. based on the fact that the nodule appears to be slightly smaller and silverware cleaner when compared to the CT scan from [facility] just a couple months ago will go ahead and plan to repeat the CT scan in 3-4 months. The patient does have high risk for pneumothorax and also has significant and is already on oxygen making the idea of an aggressive resection difficult. Will go ahead and% among conference but at this point the plan will be to repeat the CT scan in the coming months to assess further. 06/30/2022 the patient is here for a pulmonary follow-up visit. He continues to have dyspnea on exertion. Moderate severity. He is supposed to be using the oxygen but he does not like to use his oxygen tanks. He is trying to get a portable oxygen concentrator that can handle to 3 L pulse. We did talk about different devices. In the meantime I explained to him that the fact that he does not have his oxygen could result in catastrophic cardiac or cerebellar complications. The patient also continues smoking cigarettes. He understands that his respiratory capacity is only getting worse. The cigarettes are going to continue to make it even worse. He did have pulmonary function studies with an FEV1 of only 30% predicted after bronchodilator effect. It is consistent with very severe COPD picture. We also reviewed his last CT scan of the chest demonstrating his 8 mm pulmonary nodule has not changed in size. Other nodules appear to be stable. Based on the size in his risk will go ahead and repeat the CT scan in 6 months. 12/29/2022 the patient is here for a pulmonary follow-up visit. He continues to have shortness of breath. He has been using the oxygen. He is also using the BiPAP at nighttime. The PAP therapy continues to be affecting beneficial. The nebulizer as well. His nebulizer equipment is broken. I will supply him with 1. He still getting supplies also from [facility]. He does have a nebulizer for map is about 2 to 3 years old. If the machine stops working he will cough in order to send another script. The patient did have a CT scan sometime in October. The pulmonary nodules are stable. When follow-up in 6 months and discuss his next CT scan. The patient did have a new 4 mm pulmonary nodule. He also has extensive emphysema. He has a large bolus in the right lower lobe measuring close to 10 cm in size. 07/06/2023 the patient is here for a pulmonary follow-up visit. The patient has been doing fairly well. He has been using the oxygen at 2-3 L to maintain a pulse ox above 90%. Has been affecting beneficial. He also has been using the inhalers with good adherence. He also started Daliresp 250 mcg dose and is tolerating that well. Will go ahead and increase into the 100 mcg dose. The patient also has a CT scan from October 2022 that we did look at. It appears that he has a new nodule so will go ahead and repeat the CT scan October 2023. He is still working on smoking. He is cutting down significantly. This is reassuring. Will follow-up in 4-6 months. 11/30/2023 the patient is here for a pulmonary follow-up visit. The patient recently had CT scan of the chest which we personally reviewed. It appears that the right lower lobe demonstrates interval increasing pulmonary nodule now measuring 8 mm in size. Appears to be spiculated and concerning for malignancy. He has other pulmonary nodules that appear to be stable. He has emphysema. Unfortunately continues to smoke and is high risk for cancer. He does have significant chronic respiratory failure on oxygen so therefore a PET scan be helpful to better address the metabolic activity of this nodule seen there is any spread of disease. If the PET scan positive then will definitely need to do a biopsy of some type. Likely CT-guided biopsy. If the PET scans negative in view of his significant comorbidities and respiratory failure probably wait and repeat the CT scan in 3 months time. Will have to undergo pulmonary function studies to see what his lung capacity is but already he has known severe COPD and chronic respiratory failure. Will continue with current respiratory therapy and is going to work on tobacco cessation. 12/29/2023 the patient is here for a pulmonary follow-up visit. The patient overall still about the same. Unfortunately continues to smoke cigarettes. He did have a pulmonary nodule in the right lower lobe with was concerning. He also has other subcentimeter pulmonary nodules primarily in the left upper lobe. In view of the larger nodule in the right lower lobe he did undergo a PET scan. We did review the PET scan together. He does have some increased FDG activity of 2.71. This nodule has increased in size and also his high risk because it smoking history we did talk about the possibility of malignant process. There is also a positive family history. I did give him the option of following up in 3 months or moving [address]-guided biopsy. The patient is high risk because he does have chronic respiratory failure on oxygen. The patient is concerned because his family history. Therefore, will go ahead and order a CT-guided biopsy at this time. The patient also will be presented at tumor conference. He did have also some mild activity in the left upper lobe nodule though is only 6 mm in size. He may not be a surgical candidate because of his respiratory failure although stereotactic radiation may be reasonable if in the this cancer. [facility] Medical History (Updated 11/30/23 @ 22:46 by Brett Keith MD) Pulmonary nodule Pulmonary nodules Tobacco dependence ELVIA treated with BiPAP COPD (chronic obstructive pulmonary disease) Social History (Updated 06/25/21 @ 10:59 by RAMANA Mcfadden) Patient Tobacco Use Status: Former Tobacco user Tobacco use type: Cigarette Years Smoked: 12 years old Review of Systems Const Denies fever(s) and Denies night sweats ENT Denies change in voice, Denies lip swelling, Denies mouth pain, Reports nasal congestion, Reports nasal discharge and Denies tongue swelling Card Denies chest pain and Reports dyspnea on exertion Resp Reports cough and Reports dyspnea on exertion GI Denies abdominal pain Musc Denies no additional complaints Neuro Denies Neuro-related abnormal movements Psych Denies no additional complaints Romeo/Lymph Denies easy bleeding and Denies lymphadenopathy Aller/Immun Denies lip swelling and Denies tongue swelling Physical Exam Vital Signs: Last Vital Signs Pulse 86 12/29/23 11:11 BP 112/58 L 12/29/23 11:11 Pulse Ox 87 L 12/29/23 11:11 Oxygen Delivery Method Room Air 12/29/23 11:11 BMI result Body Mass Index 34.1 Const General: alert Neck Neck: Yes normal visual inspection, Yes full ROM and Yes no lymphadenopathy Chest Chest palpation & inspection: normal inspection of the chest Resp Auscultation: no wheezes and diminished lung sounds Cardio Rate: regular rate Rhythm: regular rhythm Heart sounds: S1 normal heart sound present and S2 normal heart sound present GI Palpation (GI): Soft to palpation and nontender Auscultation: normal bowel sounds Skin General skin exam: rashes and/or lesions noted Quality Reporting (2019) Adult ([facility] [id number]) Smoking risk assessment performed?: Yes Patient Tobacco Use Status: Former Tobacco user Assessment & Plan Assessment & Plan (1) Pulmonary nodules: Code(s): R91.8 - Other nonspecific abnormal finding of lung field Category: Medical (2) Tobacco dependence: Code(s): F17.200 - Nicotine dependence, unspecified, uncomplicated Category: Medical (3) ELVIA treated with BiPAP: Code(s): G47.33 - Obstructive sleep apnea (adult) (pediatric) Category: Medical (4) COPD (chronic obstructive pulmonary disease): Comment: extensive emphysema, FEV1 30% Code(s): J44.9 - Chronic obstructive pulmonary disease, unspecified Category: Medical Qualifiers: COPD type: emphysema Emphysema type: centrilobular Qualified Code(s): J43.2 - Centrilobular emphysema (5) Pulmonary nodule: Comment: now 9mm in size concerning for malignancy Code(s): R91.1 - Solitary pulmonary nodule Category: Medical Plan CT guided biopsy RLL pulmonary nodule continue Breztri continue DuoNeb as needed continue Combivent Tobacco cessation continue Daliresp 500 Continue BIPAP at night continue oxygen with activity. follow-up in 1-2 months Orders: Orders CT biopsy lung RT Today R91.1 - Solitary pulmonary nodule Coding Level of Care Code Est Pt Level 5 (81455) Complex EM visit Add On G2211 Diagnoses Pulmonary nodules R91.8 Tobacco dependence F17.200 ELVIA treated with BiPAP G47.33 Centrilobular emphysema J43.2 COPD type: emphysema Emphysema type: centrilobular Pulmonary nodule R91.1 Time Spent (min) 40
== END 2023-12-29 13:47 | disposition home or self-care (01) ==
PROVIDERS: PCP Internal Medicine; Visit Provider Hospitalist
DX: R91.8 Other nonspecific abnormal finding of lung field (principal); F17.200 Nicotine dependence, unspecified, uncomplicated; G47.33 Obstructive sleep apnea (adult) (pediatric); J43.2 Centrilobular emphysema; R91.1 Solitary pulmonary nodule
CPT/HCPCS: 99215

== ENCOUNTER → 2023-12-29 11:10 | Outpatient (BNVA) | payer BC, MEDICARE, SELFPAY | PROVIDERS: PCP Internal Medicine; Visit Provider Hospitalist ==

== ENCOUNTER 2024-01-12 08:34 | Day surgery (SDC) | payer BC, MEDICARE, SELFPAY ==
[2024-01-12] VITALS (8 sets, daily range): BP systolic 110–130; BP diastolic 52–71; PULSE 75–87; RESP 16; TEMP 36.6–36.7; O2SAT 94–98; BMI 34.1
--- NOTE | ~2024-01-12 | XR_ITS ---
EXAMINATION: XR CHEST CLINICAL INFORMATION: Status post right lung biopsy. COMPARISON: Same date at 12:17 PM. TECHNIQUE: Frontal view of the chest was obtained. FINDINGS: Lungs are hyperexpanded. Mild bibasilar atelectasis has slightly improved. No pneumothorax or appreciable pleural effusion. Cardiac and mediastinal contours are unremarkable. Pulmonary nodules are better seen on prior CT. EKG leads overlie the chest. Mild degenerative spondylosis in the thoracic spine. XR/XR chest 1V IMPRESSION: 1. No pneumothorax. 2. Improving mild bibasilar atelectasis. Electronically signed by: Dayton Hays MD 02/06/2024 05:25 PM EDT
--- NOTE | ~2024-01-12 | XR_ITS ---
EXAMINATION: XR CHEST CLINICAL INFORMATION: Status post right lung biopsy. COMPARISON: CT chest dated 10/24/2023 TECHNIQUE: Frontal view of the chest was obtained. FINDINGS: Mild bibasilar atelectasis. No pneumothorax or pleural effusion. Pulmonary nodules are better seen on CT. Cardiac and mediastinal contours are normal. EKG leads overlie the chest. Lungs are hyperexpanded. Degenerative spondylosis midthoracic spine. XR/XR chest 1V IMPRESSION: No pneumothorax. Mild bibasilar atelectasis. Electronically signed by: Dayton Hays MD 02/06/2024 05:19 PM EDT
--- NOTE | ~2024-01-12 | CT_ITS ---
Enlarging 9 mm right lower lobe lung nodule. PROCEDURES: 1. Limited preprocedure CT of the chest. Permanent images saved in PACS. 2. CT-guided biopsy of the right lung nodule. 3. Limited postprocedure CT of the chest. Permanent images saved in PACS. CLINICIANS: Hayder Fink PA-C MEDICATIONS: -Versed 1 mg, Fentanyl 50 mcg, and lidocaine 1% 10 mL SQ -Antibiotics: None -For additional details, please see nursing flowsheet. COMPLICATIONS: None ESTIMATED BLOOD LOSS: < 5 ml CONTRAST: None SPECIMENS: 4 x 20 g cores were sent for pathology MODERATE SEDATION TIME: 30 min PROCEDURE NOTE: The procedure, risks, benefits, and alternatives were carefully explained to the patient and written informed consent was obtained. The patient was placed prone on the CT table. A timeout was performed. A limited CT of the chest was performed to localize the right lung nodule and choose appropriate needle entry and trajectory. The patient was prepped and draped in usual sterile fashion. The skin and deeper soft tissues were anesthetized with lidocaine. Under CT guidance, a 19 gague trocar needle was advanced to the right lung nodule. A 20 gauge biopsy device was inserted through the trocar needle and advanced into the nodule. A total of 4 cores were performed. The specimens were placed in formalin and sent to pathology. A total of 5 mL of nonclotted blood was obtained from the patient's IV by the nursing staff. A blood patch was then administered through the trocar needle. The needle was removed. A dry dressing was applied and secured with Tegaderm. A limited postprocedure CT of the chest was performed, which did not demonstrate any pneumothorax or hemothorax. There were no immediate complications. The patient was stable after the procedure and was transferred to the post anesthesia care unit. The procedure was done under moderate sedation with a dedicated nurse for monitoring of vital signs. CT/CT biopsy lung RT Impression: CT-guided right lung nodule biopsy This procedure was performed by Hayder Fink PA-C and supervised by Dr. Knapp. Electronically signed by: Abundio Knapp MD 01/26/2024 12:30 PM EDT Workstation: [id number]
[2024-01-12 09:59] LABS: MANUAL DIFF FLAG NO
[2024-01-12 10:01] LABS: Basophils Percent Auto 0.4 % (0-2); Eosinophils Absolute Auto 0.1 X10*3/uL (0.0-0.4); Eosinophils Percent Auto 1.2 % (0-4); Hematocrit 43.5 % (42.0-52.0); Hemoglobin 14.6 g/dl (14.0-18.0); Imm Gran Abs Auto 0.02 X10*3/uL (0.00-0.03); Imm Gran Pct Auto 0.2 % (0.0-0.4); Lymphocytes Absolute Auto 1.6 X10*3/uL (1.2-4.9); Lymphocytes Percent Auto 16.8 % (20-40); Mean Corpuscular HGB Conc 33.6 g/dl (31.0-36.0); Mean Corpuscular Hemoglobin 30.7 pg (27.0-33.0); Mean Corpuscular Volume 91.4 fL (80.0-98.0); Mean Platelet Volume 10.3 fL (9.4-12.4); Monocytes Absolute Auto 0.6 X10*3/uL (0.1-1.2); Monocytes Percent Auto 6.4 % (2-11); Neutrophils Absolute Auto 7.2 x10*3/uL (2.0-8.3); Platelet Count 173 X10*3/uL (160-400); Red Blood Count 4.76 X10*6/uL (4.60-5.80); Red Cell Distribution Width 13.4 % (11.0-16.0); White Blood Count 9.7 X10*3/uL (4.8-10.8)
[2024-01-12 10:08] LABS: Prothrombin Time 11.8 SEC (11.1-13.3)
[2024-01-12 10:11] LABS: Partial Thromboplastin Time 33.8 SEC (26.0-36.8)
--- NOTE | 2024-01-12 10:32 | MHC.SHP ---
Pre-Procedural Eval Section A - 24 Hr Update-Section A only Date of Service: 01/12/24 Section B - Complete if H&P > 30 days Chief Complaint: SOLITARY PULMONARY NODULE RIGHT LUNG Details of Present Illness: 73 y/o man with an enlarging RLL lung nodule (9 mm) Relevant Family History (Specify if Yes): No Relevant Social History: Tobacco Use Present Medications: see Short Stay Collaborative assessment Medical History: Significant History History of Previous Operations: Relevant previous surgery/procedure and date(s) Allergies: Allergies Allergy/AdvReac Type Severity Reaction Status Date / Time No Known Allergies Allergy Verified 12/29/23 11:17 Review of Systems Sugical H&P ROS: Negative: Constitution and Cardiovascular and Yes, Specify: Respiratory (chronic dyspnea) Exam Surgical H&P Exam: Normal: Heart and Normal: Neurological and Significant Findings: Lungs (mild b/l expiratory wheezes) Plan 73 y/o man with an enlarging right 9mm lung nodule -CT right lung biopsy Time Spent With Patient Time: Total time managing care of this patient today ____ minutes.
== END 2024-01-12 13:57 | disposition home or self-care (01) ==
PROVIDERS: Physician Assistant Surgical; Student in an Organized Health Care Education/Training Program; PCP Internal Medicine; Visit Provider Hospitalist
DX: C34.31 Malignant neoplasm of lower lobe, right bronchus or lung (principal); R91.8 Other nonspecific abnormal finding of lung field; J44.9 Chronic obstructive pulmonary disease, unspecified; J43.2 Centrilobular emphysema; J96.10 Chronic respiratory failure, unspecified whether with hypoxia or hypercapnia; Z99.81 Dependence on supplemental oxygen; G47.33 Obstructive sleep apnea (adult) (pediatric); M79.89 Other specified soft tissue disorders; Z91.81 History of falling; F17.210 Nicotine dependence, cigarettes, uncomplicated; Z99.89 Dependence on other enabling machines and devices
CPT/HCPCS: 32408; 36415; 71045; 85025; 85610; 85730; 88305; 88341; 88342; 99152; 99153; J2250; J2310; J3010

== ENCOUNTER → 2024-01-12 10:46 | Outpatient (BNV) | payer BC, MEDICARE, SELFPAY | PROVIDERS: PCP Internal Medicine; Visit Provider Student in an Organized Health Care Education/Training Program | DX: R91.1 Solitary pulmonary nodule (principal) | CPT/HCPCS: 32408; 99499 ==

== ENCOUNTER 2024-01-26 09:44 | Outpatient (AMB) | payer BC, MEDICARE, SELFPAY ==
--- NOTE | 2024-01-26 09:49 | MHC.OFFVIS ---
Vital Signs 01/26/24 09:51 Height 5 ft 10 in Weight 235 lb BMI 33.7 BP 110/50 L Blood Pressure Location Rt brachial Position Sitting Pulse 75 Pulse Source Pulse Oximeter Pulse Oximetry (%) 91 L Oxygen Delivery Method Room Air Comment 2 Liters Oxygen([employer]) Intake Visit Reasons: S/p biopsy Cardiovascular Radiologic Technologist Required: No Allergies bee pollen Adverse Reaction (Severe, Verified 01/26/24 09:55) Anaphylaxis HPI Comments Details: The patient is a 73-year-old gentleman known COPD, ELVIA on PAP therapy and tobacco dependency. He also has underlying pulmonary nodules that we have been following. His last CT scan of the chest at [facility] was done in September of 2018. His largest nodule measured 8 mm at that time. Also the nodule appeared to be subsolid nature. Recently he had a fall after losing consciousness. He did injure his lung on the right side with some increased work of breathing. He continues to smoke unfortunately. The patient was recently evaluated at [facility] for lower extremity swelling and shortness of breath. He had an ultrasound of his right lower extremity which demonstrated no evidence of any DVT and had a CT angiogram of the chest burning up pulmonary embolism. However, the nodule appeared to be more solid in nature now measuring 9 mm. This is concerning for a both change in growth and change in appearance in a short period of time. The patient does smoke and does have increased risk factors for cancer. At this point I will request a PET scan to further evaluate this nodule. At this point will going to go ahead and order her oxygen through a DME company for him to be able to use the oxygen with activity. The patient needs better portability. Will provide him with a conserving device trial in order for him to get smaller tanks. His PET scan was denied from his your insurance company for the 9 mm nodule for unclear reason. At this point the patient should get a CAT scan 3 months from his prior CT scan in March 16. If the nodule is larger in size and we need to get a PET scan at that time. 12/29/2022 the patient is here for a pulmonary follow-up visit. He continues to have shortness of breath. He has been using the oxygen. He is also using the BiPAP at nighttime. The PAP therapy continues to be affecting beneficial. The nebulizer as well. His nebulizer equipment is broken. I will supply him with 1. He still getting supplies also from [employer]. He does have a nebulizer for map is about 2 to 3 years old. If the machine stops working he will cough in order to send another script. The patient did have a CT scan sometime in October. The pulmonary nodules are stable. When follow-up in 6 months and discuss his next CT scan. The patient did have a new 4 mm pulmonary nodule. He also has extensive emphysema. He has a large bolus in the right lower lobe measuring close to 10 cm in size. 07/06/2023 the patient is here for a pulmonary follow-up visit. The patient has been doing fairly well. He has been using the oxygen at 2-3 L to maintain a pulse ox above 90%. Has been affecting beneficial. He also has been using the inhalers with good adherence. He also started Daliresp 250 mcg dose and is tolerating that well. Will go ahead and increase into the 100 mcg dose. The patient also has a CT scan from October 2022 that we did look at. It appears that he has a new nodule so will go ahead and repeat the CT scan October 2023. He is still working on smoking. He is cutting down significantly. This is reassuring. Will follow-up in 4-6 months. 11/30/2023 the patient is here for a pulmonary follow-up visit. The patient recently had CT scan of the chest which we personally reviewed. It appears that the right lower lobe demonstrates interval increasing pulmonary nodule now measuring 8 mm in size. Appears to be spiculated and concerning for malignancy. He has other pulmonary nodules that appear to be stable. He has emphysema. Unfortunately continues to smoke and is high risk for cancer. He does have significant chronic respiratory failure on oxygen so therefore a PET scan be helpful to better address the metabolic activity of this nodule seen there is any spread of disease. If the PET scan positive then will definitely need to do a biopsy of some type. Likely CT-guided biopsy. If the PET scans negative in view of his significant comorbidities and respiratory failure probably wait and repeat the CT scan in 3 months time. Will have to undergo pulmonary function studies to see what his lung capacity is but already he has known severe COPD and chronic respiratory failure. Will continue with current respiratory therapy and is going to work on tobacco cessation. 12/29/2023 the patient is here for a pulmonary follow-up visit. The patient overall still about the same. Unfortunately continues to smoke cigarettes. He did have a pulmonary nodule in the right lower lobe with was concerning. He also has other subcentimeter pulmonary nodules primarily in the left upper lobe. In view of the larger nodule in the right lower lobe he did undergo a PET scan. We did review the PET scan together. He does have some increased FDG activity of 2.71. This nodule has increased in size and also his high risk because it smoking history we did talk about the possibility of malignant process. There is also a positive family history. I did give him the option of following up in 3 months or moving [address]-guided biopsy. The patient is high risk because he does have chronic respiratory failure on oxygen. The patient is concerned because his family history. Therefore, will go ahead and order a CT-guided biopsy at this time. The patient also will be presented at tumor conference. He did have also some mild activity in the left upper lobe nodule though is only 6 mm in size. He may not be a surgical candidate because of his respiratory failure although stereotactic radiation may be reasonable if in the this cancer. 01/26/2024 the patient is here for pulmonary follow-up visit. He is status post biopsy of the right lower lobe nodule. 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 His PET scan demonstrated just slight FDG activity of 2.7 of the right lower lobe nodule. The patient also had PFTs with a DLCO of only 35% predicted. Unfortunately continues to smoke cigarettes. He does want to quit. Based on the fact that his the DLCO so low PFTs are abnormal he is not a good surgical candidate. Therefore, I will refer him to Radiation Oncology and also Oncology at [facility] as he prefers. Patient will be a good candidate for stereotactic radiation. In the meantime struggling but his inhalers. He is using his albuterol weight 2 often every 2 hours. Will provide him with much support as possible but he can not take albuterol often it can result in other adverse effects. [facility]LY [facility] Medical History (Updated 01/17/24 @ 12:37 by Mariana Romero PA-C) Pulmonary nodule Pulmonary nodules COPD (chronic obstructive pulmonary disease) ELVIA treated with BiPAP Tobacco dependence Surgical History (Updated 01/17/24 @ 12:36 by Mariana Romero PA-C) History of lung biopsy Social History (Updated 06/25/21 @ 10:59 by RAMANA Mcfadden) Patient Tobacco Use Status: Former Tobacco user Tobacco use type: Cigarette Years Smoked: 12 years old Review of Systems Const Denies fever(s) and Denies night sweats ENT Denies change in voice, Denies lip swelling, Denies mouth pain, Reports nasal congestion, Reports nasal discharge and Denies tongue swelling Card Denies chest pain and Reports dyspnea on exertion Resp Reports cough and Reports dyspnea on exertion GI Denies abdominal pain Musc Denies no additional complaints Neuro Denies Neuro-related abnormal movements Psych Denies no additional complaints Romeo/Lymph Denies easy bleeding and Denies lymphadenopathy Aller/Immun Denies lip swelling and Denies tongue swelling Physical Exam Vital Signs: Last Vital Signs Pulse 75 01/26/24 09:51 BP 110/50 L 01/26/24 09:51 Pulse Ox 91 L 01/26/24 09:51 Oxygen Delivery Method Room Air 01/26/24 09:51 BMI result Body Mass Index 33.7 Const General: alert Neck Neck: Yes normal visual inspection, Yes full ROM and Yes no lymphadenopathy Chest Chest palpation & inspection: normal inspection of the chest Resp Effort & Inspection: prolonged expiratory phase Auscultation: no wheezes and diminished lung sounds Cardio Rate: regular rate Rhythm: regular rhythm Heart sounds: S1 normal heart sound present and S2 normal heart sound present GI Palpation (GI): Soft to palpation and nontender Auscultation: normal bowel sounds Skin General skin exam: rashes and/or lesions noted Quality Reporting (2019) Adult ([facility] 138/07/14/68) Smoking risk assessment performed?: Yes Patient Tobacco Use Status: Former Tobacco user Results Reviewed Results Reviewed: personally reviewed CT chest, PET scan and pathology, RLL 8mm nodule +SCLCA Assessment & Plan Assessment & Plan (1) 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: Onset Date: ~2023 Code(s): C34.31 - Malignant neoplasm of lower lobe, right bronchus or lung Category: Medical (2) Pulmonary nodules: Code(s): R91.8 - Other nonspecific abnormal finding of lung field Category: Medical (3) Tobacco dependence: Code(s): F17.200 - Nicotine dependence, unspecified, uncomplicated Category: Medical (4) ELVIA treated with BiPAP: Code(s): G47.33 - Obstructive sleep apnea (adult) (pediatric) Category: Medical (5) COPD (chronic obstructive pulmonary disease): Comment: extensive emphysema, FEV1 30% Code(s): J44.9 - Chronic obstructive pulmonary disease, unspecified Category: Medical Qualifiers: COPD type: emphysema Emphysema type: centrilobular Qualified Code(s): J43.2 - Centrilobular emphysema (6) Pulmonary nodule: Comment: now 9mm in size concerning for malignancy Code(s): R91.1 - Solitary pulmonary nodule Category: Medical Plan Urgent referral to rad Onc for SBRT. Low DLCO, not a candidate for surgical intervention referral to oncology at [facility] continue Breztri continue DuoNeb as needed continue Combivent Tobacco cessation continue Daliresp 500 Continue BIPAP at night continue oxygen with activity. 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
[2024-01-26 09:51] VITALS: BP 110/50; PULSE 75; O2SAT 91; BMI 33.7
== END 2024-01-26 10:22 | disposition home or self-care (01) ==
PROVIDERS: PCP Internal Medicine; Visit Provider Hospitalist
DX: C34.31 Malignant neoplasm of lower lobe, right bronchus or lung (principal); R91.8 Other nonspecific abnormal finding of lung field; F17.200 Nicotine dependence, unspecified, uncomplicated; G47.33 Obstructive sleep apnea (adult) (pediatric); J43.2 Centrilobular emphysema; R91.1 Solitary pulmonary nodule
CPT/HCPCS: 99215

== ENCOUNTER → 2024-01-26 09:44 | Outpatient (BNVA) | payer BC, MEDICARE, SELFPAY | PROVIDERS: PCP Internal Medicine; Visit Provider Hospitalist ==

== ENCOUNTER 2024-03-30 13:57 | Outpatient (AMB) | payer BC, MEDICARE, SELFPAY ==
--- NOTE | 2024-03-30 13:58 | MHC.OFFVIS ---
Vital Signs 03/30/24 13:59 Height 5 ft 10 in Weight 245 lb 4 oz BMI 35.2 BP 120/62 Blood Pressure Location Rt brachial Position Sitting Pulse 85 Pulse Source Pulse Oximeter Pulse Oximetry (%) 93 Oxygen Delivery Method Nasal Cannula Oxygen Flow Rate 2 Intake Visit Reasons: Pneumonia Allergies bee pollen Adverse Reaction (Severe, Verified 03/30/24 14:03) Anaphylaxis HPI HPI Pneumonia: Details: Bill is a 74 year old male who is followed for severe COPD on 3L supplemental oxygen and recent diagnosis of squamous cell carinoma of bilateral lungs undergoing radiation at [facility]. He is currently using Breztri, Combivent and albuterol MDI/nebs with moderate control at baseline. He is under the care Dr. Keith and presents today for an acute visit. He was recently evaluated at [facility] diagnosed with pneumonia and treated with Vantin, prednisone as well as azithromycin. He notes symptoms have significantly improved specifically pleuritic discomfort in the right lower lobe since starting medication. Due to significant pneumonia patient has had to hold off on radiation on the right. He denies any increase in supplemental oxygen. He denies fever chills since starting antibiotics. [facility] Medical History (Updated 01/17/24 @ 12:37 by Mariana Romero PA-C) Pulmonary nodule Pulmonary nodules COPD (chronic obstructive pulmonary disease) ELVIA treated with BiPAP Tobacco dependence Surgical History (Updated 01/17/24 @ 12:36 by Mariana Romero PA-C) History of lung biopsy Social History Patient Tobacco Use Status: Former Tobacco user Tobacco use type: Cigarette Years Smoked: 12 years old Review of Systems Const Denies chills, Denies excessive sweating, Denies fever(s), Denies headache(s) and Denies night sweats Eyes Denies dry eyes, Denies irritation and Denies itchy eyes ENT Reports Normal hearing present, Denies headache(s), Denies nasal congestion, Denies nasal discharge, Denies post nasal drip and Denies sore throat Card Denies chest pain, Denies chest pain at rest, Denies chest pain with activity, Denies claudication, Denies leg edema, Denies dyspnea, Denies orthopnea and Denies paroxysmal nocturnal dyspnea Resp Denies chest congestion, Denies excessive phlegm production, Denies pain on inspiration, Denies pain with cough, Denies dyspnea and Denies stridor Musc Denies myalgias Neuro Reports Normal hearing present and Denies headache(s) Endo Denies excessive sweating Romeo/Lymph Denies lymphadenopathy Aller/Immun Denies itchy eyes and Denies seasonal rhinorrhea Physical Exam Vital Signs: Last Vital Signs Pulse 85 03/30/24 13:59 BP 120/62 03/30/24 13:59 Pulse Ox 93 03/30/24 13:59 Oxygen Delivery Method Nasal Cannula 03/30/24 13:59 Oxygen Flow Rate 2 03/30/24 13:59 BMI result Body Mass Index 35.2 Const General: cooperative, healthy appearing, comfortable, no acute distress, well developed and alert Nutritional Appearance: obese Orientation/consciousness: patient oriented x3 Limitations: no limitations HEENT Head: Yes normal to inspection, Yes normocephalic and Yes atraumatic Ears: hearing grossly normal bilaterally and external ears normal Eyes General: appearance normal, both eyes and all related structures Eyelids: Yes eyelids normal Sclerae: sclerae normal EOM: EOMs intact bilaterally Neck Neck: Yes normal visual inspection and Yes no lymphadenopathy Lymphatic: no lymphadenopathy noted Chest Chest palpation & inspection: normal inspection of the chest Resp Effort & Inspection: normal respiratory effort, able to speak in complete sentences, no audible wheezes, no cough, no stridor, not tachypneic, no tripod positioning and no use of accessory muscles Auscultation: diminished lung sounds Cardio Jugular venous distension: no JVD Rate: regular rate Rhythm: regular rhythm Skin Other: warm, dry General skin exam: no rashes or lesions noted Neuro General: patient oriented x3 Cranial nerves: Yes Normal hearing present Cognition (Neuro): normal cognition Gait exam (Neuro): Normal gait present Extrem General: Yes normal to inspection, Yes capillary refill normal, Yes no clubbing, cyanosis or edema and Yes no pedal edema Psych Appearance: grossly normal and well kempt Speech and movement: Normal speech and movement present and Clear speech present Affect: normal affect Attitude: cooperative Thought process: Normal thought process present Thought content: Normal thought content present Insight: Good insight present (Psych) Judgement: Good judgement present (Psych) Quality Reporting (2019) Adult ([facility] 138/2) Smoking risk assessment performed?: Yes Patient Tobacco Use Status: Former Tobacco user Assessment & Plan Assessment & Plan (1) 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 He notes improvements in cough as well as pleuritic discomfort since starting antibiotics and prednisone. Advised patient to complete course of all medications and to call if he notices symptoms are worsening as he tapers off prednisone. Will obtain chest CT that was completed on 03/22 and repeat imaging to assess resolution of pneumonia. All questions were answered and patient is in agreement of plan. Will follow-up for regularly scheduled appointment with Dr. Keith or sooner if needed. 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
[2024-03-30 13:59] VITALS: BP 120/62; PULSE 85; O2SAT 93; BMI 35.2
== END 2024-03-30 15:02 | disposition home or self-care (01) ==
PROVIDERS: PCP Internal Medicine; Visit Provider Nurse Practitioner Family
DX: C34.31 Malignant neoplasm of lower lobe, right bronchus or lung (principal); J43.2 Centrilobular emphysema
CPT/HCPCS: 99214

== ENCOUNTER 2024-04-11 10:24 | Outpatient (REF) | payer BC, MEDICARE, SELFPAY | END 2024-04-11 10:25 | disposition home or self-care (01) | LOC: HO.XRAY 10:24 | PROVIDERS: PCP Internal Medicine; Visit Provider Hospitalist | DX: J43.2 Centrilobular emphysema (principal); C34.31 Malignant neoplasm of lower lobe, right bronchus or lung; F17.200 Nicotine dependence, unspecified, uncomplicated; R91.8 Other nonspecific abnormal finding of lung field; R06.02 Shortness of breath | CPT/HCPCS: 71046; 96372; J2919 ==

== ENCOUNTER 2024-04-11 10:24 | Outpatient (AMB) | payer BC, MEDICARE, SELFPAY ==
[2024-04-11 10:26] VITALS: BP 120/58; PULSE 98; O2SAT 92
--- NOTE | 2024-04-11 10:26 | MHC.OFFVIS ---
Vital Signs 04/11/24 10:26 Weight 240 lb 4.862 oz BP 120/58 L Blood Pressure Location Lt brachial Position Sitting Pulse 98 Pulse Source Pulse Oximeter Pulse Oximetry (%) 92 Oxygen Delivery Method Nasal Cannula Oxygen Flow Rate 3 Intake Visit Reasons: increased shortness of breath Allergies bee pollen Adverse Reaction (Severe, Verified 04/11/24 10:31) Anaphylaxis Medication List - Last Reconciled 04/11/24 by Sandra Rothman LPN albuterol sulfate 90 mcg/actuation 2 puffs inhalation Q4H PRN albuterol sulfate 90 mcg/actuation (Ventolin HFA) 2 puffs inhalation QID PRN 30 days albuterol sulfate 2.5 mg (3 mL) inhalation Q6H PRN allopurinol 300 mg PO DAILY aspirin (Ecotrin Low Strength) 81 mg PO DAILY vbrejbeqlr-cmehprbf-xgcgfarutd 160-9-4.8 mcg/actuation (Breztri Aerosphere) 2 inhalations inhalation BID 90 days chlorthalidone 12.5 mg PO DAILY Combivent Respimat 20-100 mcg/actuation (ipratropium-albuterol) 1 puff PO QID 90 days NS CPAP (CPAP Machine/Device) As directed diazepam mg PO furosemide 20 mg PO DAILY lisinopril 20 mg PO DAILY metoprolol tartrate 12.5 mg PO BID montelukast 10 mg PO BEDTIME 90 days nebulizers As directed Oxygen Home Use As directed roflumilast (Daliresp) 500 mcg PO DAILY 30 days simvastatin 40 mg PO DAILY trazodone 100 mg PO BEDTIME 30 days HPI Comments Details: The patient is a 74-year-old gentleman known COPD, ELVIA on PAP therapy and tobacco dependency. He also has underlying pulmonary nodules that we have been following. His last CT scan of the chest at [facility] was done in September of 2018. His largest nodule measured 8 mm at that time. Also the nodule appeared to be subsolid nature. Recently he had a fall after losing consciousness. He did injure his lung on the right side with some increased work of breathing. He continues to smoke unfortunately. The patient was recently evaluated at [facility] for lower extremity swelling and shortness of breath. He had an ultrasound of his right lower extremity which demonstrated no evidence of any DVT and had a CT angiogram of the chest burning up pulmonary embolism. However, the nodule appeared to be more solid in nature now measuring 9 mm. This is concerning for a both change in growth and change in appearance in a short period of time. The patient does smoke and does have increased risk factors for cancer. At this point I will request a PET scan to further evaluate this nodule. At this point will going to go ahead and order her oxygen through a [employer] company for him to be able to use the oxygen with activity. The patient needs better portability. Will provide him with a conserving device trial in order for him to get smaller tanks. His PET scan was denied from his your insurance company for the 9 mm nodule for unclear reason. At this point the patient should get a CAT scan 3 months from his prior CT scan in March 16. If the nodule is larger in size and we need to get a PET scan at that time. 12/29/2022 the patient is here for a pulmonary follow-up visit. He continues to have shortness of breath. He has been using the oxygen. He is also using the BiPAP at nighttime. The PAP therapy continues to be affecting beneficial. The nebulizer as well. His nebulizer equipment is broken. I will supply him with 1. He still getting supplies also from [employer]. He does have a nebulizer for map is about 2 to 3 years old. If the machine stops working he will cough in order to send another script. The patient did have a CT scan sometime in October. The pulmonary nodules are stable. When follow-up in 6 months and discuss his next CT scan. The patient did have a new 4 mm pulmonary nodule. He also has extensive emphysema. He has a large bolus in the right lower lobe measuring close to 10 cm in size. 07/06/2023 the patient is here for a pulmonary follow-up visit. The patient has been doing fairly well. He has been using the oxygen at 2-3 L to maintain a pulse ox above 90%. Has been affecting beneficial. He also has been using the inhalers with good adherence. He also started Daliresp 250 mcg dose and is tolerating that well. Will go ahead and increase into the 100 mcg dose. The patient also has a CT scan from October 2022 that we did look at. It appears that he has a new nodule so will go ahead and repeat the CT scan October 2023. He is still working on smoking. He is cutting down significantly. This is reassuring. Will follow-up in 4-6 months. 11/30/2023 the patient is here for a pulmonary follow-up visit. The patient recently had CT scan of the chest which we personally reviewed. It appears that the right lower lobe demonstrates interval increasing pulmonary nodule now measuring 8 mm in size. Appears to be spiculated and concerning for malignancy. He has other pulmonary nodules that appear to be stable. He has emphysema. Unfortunately continues to smoke and is high risk for cancer. He does have significant chronic respiratory failure on oxygen so therefore a PET scan be helpful to better address the metabolic activity of this nodule seen there is any spread of disease. If the PET scan positive then will definitely need to do a biopsy of some type. Likely CT-guided biopsy. If the PET scans negative in view of his significant comorbidities and respiratory failure probably wait and repeat the CT scan in 3 months time. Will have to undergo pulmonary function studies to see what his lung capacity is but already he has known severe COPD and chronic respiratory failure. Will continue with current respiratory therapy and is going to work on tobacco cessation. 12/29/2023 the patient is here for a pulmonary follow-up visit. The patient overall still about the same. Unfortunately continues to smoke cigarettes. He did have a pulmonary nodule in the right lower lobe with was concerning. He also has other subcentimeter pulmonary nodules primarily in the left upper lobe. In view of the larger nodule in the right lower lobe he did undergo a PET scan. We did review the PET scan together. He does have some increased FDG activity of 2.71. This nodule has increased in size and also his high risk because it smoking history we did talk about the possibility of malignant process. There is also a positive family history. I did give him the option of following up in 3 months or moving [address]-guided biopsy. The patient is high risk because he does have chronic respiratory failure on oxygen. The patient is concerned because his family history. Therefore, will go ahead and order a CT-guided biopsy at this time. The patient also will be presented at tumor conference. He did have also some mild activity in the left upper lobe nodule though is only 6 mm in size. He may not be a surgical candidate because of his respiratory failure although stereotactic radiation may be reasonable if in the this cancer. 01/26/2024 the patient is here for pulmonary follow-up visit. He is status post biopsy of the right lower lobe nodule. 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 His PET scan demonstrated just slight FDG activity of 2.7 of the right lower lobe nodule. The patient also had PFTs with a DLCO of only 35% predicted. Unfortunately continues to smoke cigarettes. He does want to quit. Based on the fact that his the DLCO so low PFTs are abnormal he is not a good surgical candidate. Therefore, I will refer him to Radiation Oncology and also Oncology at [facility] as he prefers. Patient will be a good candidate for stereotactic radiation. In the meantime struggling but his inhalers. He is using his albuterol weight 2 often every 2 hours. Will provide him with much support as possible but he can not take albuterol often it can result in other adverse effects. 04/11/2024 the patient is here for a pulmonary follow-up visit. He is status post completion of his stereotactic radiation bilaterally. Now having significant pleuritic discomfort on his left side. It is reproducible. He has been trying some Lidoderm patches. No vesicles. He did complete antibiotics and also was taking prednisone. The prednisone did help but now he is down to 10 mg and he feels like he is getting worse. Will go ahead and start him again but will provide him with Solu-Medrol today to help him with any evidence of any radiation pneumonitis. In addition to that he continues uses respiratory therapy his oxygen good effect. Home undergo a chest x-ray today to see the progress. Will follow-up in 6-8 weeks. If he has any worsening symptoms will call for further recommendations. COUNT INCLUDES THE [facility] Medical History (Updated 04/11/24 @ 18:41 by Brett Keith MD) Pulmonary nodule Pulmonary nodules COPD (chronic obstructive pulmonary disease) ELVIA treated with BiPAP Tobacco dependence Surgical History (Updated 01/17/24 @ 12:36 by Mariana Romero PA-C) History of lung biopsy Social History Patient Tobacco Use Status: Former Tobacco user Tobacco use type: Cigarette Years Smoked: 12 years old Review of Systems Const Denies fever(s) and Denies night sweats ENT Denies change in voice, Denies lip swelling, Denies mouth pain, Reports nasal congestion, Reports nasal discharge and Denies tongue swelling Card Reports chest pain, Reports dyspnea and Reports dyspnea on exertion Resp Reports cough, Reports pain on inspiration, Reports pain with cough, Reports dyspnea and Reports dyspnea on exertion GI Denies abdominal pain Musc Denies no additional complaints Neuro Denies Neuro-related abnormal movements Psych Denies no additional complaints Romeo/Lymph Denies easy bleeding and Denies lymphadenopathy Aller/Immun Denies lip swelling and Denies tongue swelling Physical Exam Vital Signs: Last Vital Signs Pulse 98 04/11/24 10:26 BP 120/58 L 04/11/24 10:26 Pulse Ox 92 04/11/24 10:26 Oxygen Delivery Method Nasal Cannula 04/11/24 10:26 Oxygen Flow Rate 3 04/11/24 10:26 Const General: alert Neck Neck: Yes normal visual inspection, Yes full ROM and Yes no lymphadenopathy Chest Chest palpation & inspection: tenderness rib (left) Resp Effort & Inspection: prolonged expiratory phase Auscultation: no wheezes and diminished lung sounds Cardio Rate: regular rate Rhythm: regular rhythm Heart sounds: S1 normal heart sound present and S2 normal heart sound present GI Palpation (GI): Soft to palpation and nontender Auscultation: normal bowel sounds Skin General skin exam: rashes and/or lesions noted Office Meds methylprednisolone sod suc(PF) 125 mg/2 mL solution for injection Performing Provider: Brett Keith MD Performing Location: [facility] Administered by: Sandra Rothman LPN on 04/11/24 11:11 Dose Route Admin Location Dispensed Lot Number Expiration Date [facility] Interlocker 125 mg IM R buttock 2 ea [id number] 01/20/26 5558-1732-52 [employer] Comments: total dose given 125mg/2ml Quality Reporting (2019) Adult ([facility] 138/07/14/68) Smoking risk assessment performed?: Yes Patient Tobacco Use Status: Former Tobacco user Assessment & Plan Assessment & Plan (1) 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: Onset Date: ~2023 Code(s): C34.31 - Malignant neoplasm of lower lobe, right bronchus or lung Category: Medical (2) Pulmonary nodules: Code(s): R91.8 - Other nonspecific abnormal finding of lung field Category: Medical (3) Tobacco dependence: Code(s): F17.200 - Nicotine dependence, unspecified, uncomplicated Category: Medical (4) ELVIA treated with BiPAP: Code(s): G47.33 - Obstructive sleep apnea (adult) (pediatric) Category: Medical (5) COPD (chronic obstructive pulmonary disease): Comment: extensive emphysema, FEV1 30% Code(s): J44.9 - Chronic obstructive pulmonary disease, unspecified Category: Medical Qualifiers: COPD type: emphysema Emphysema type: centrilobular Qualified Code(s): J43.2 - Centrilobular emphysema (6) Pulmonary nodule: Comment: now 9mm in size concerning for malignancy Code(s): R91.1 - Solitary pulmonary nodule Category: Medical (7) Pleuritis: Code(s): R09.1 - Pleurisy Category: Medical Plan solumedrol->prednisone taper, likely will keep on 10mg daily Doxycycline lidoderm patches to affected area CXR today continue Breztri continue DuoNeb as needed continue Combivent Tobacco cessation continue Daliresp 500 Continue BIPAP at night continue oxygen with activity. follow-up in 2-3 months Orders: Orders AMB Methylprednisolone Sod Succ Injection Today J43.2 - Centrilobular emphysema XR chest 2V Today J43.2 - Centrilobular emphysema Medications: New prednisone PO daily; Take 6 tabs daily x 3 days, then 5 tabs x 3 days, then 4 tabs x 3 days, then 3 tabs x 3 days, then 2 tabs daily x 3 days, then 1 tab x 3 days to complete. 63 tabs 0RF 18 days doxycycline monohydrate 100 mg PO BID 42 tabs 0RF 21 days Coding Level of Care Code Est Pt Level 4 (66834) Complex EM visit Add On G2211 Diagnoses 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 C34.31 Pulmonary nodules R91.8 Tobacco dependence F17.200 ELVIA treated with BiPAP G47.33 Centrilobular emphysema J43.2 COPD type: emphysema Emphysema type: centrilobular Pulmonary nodule R91.1 Pleuritis R09.1 Time Spent (min) 17
== END 2024-04-11 10:59 | disposition home or self-care (01) ==
PROVIDERS: PCP Internal Medicine; Visit Provider Hospitalist
DX: C34.31 Malignant neoplasm of lower lobe, right bronchus or lung (principal); R91.8 Other nonspecific abnormal finding of lung field; F17.200 Nicotine dependence, unspecified, uncomplicated; G47.33 Obstructive sleep apnea (adult) (pediatric); J43.2 Centrilobular emphysema; R91.1 Solitary pulmonary nodule; R09.1 Pleurisy
CPT/HCPCS: 99214

== ENCOUNTER 2024-04-17 10:50 | Outpatient (AMB) | payer BC, MEDICARE, SELFPAY ==
--- NOTE | 2024-04-17 10:58 | A.OFFVIS_ITS ---
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 offered & declined Accompanied by: Spouse Allergies bee pollen Adverse Reaction (Severe, Verified 04/17/24 11:05) Anaphylaxis Medication List - Last Reconciled 04/17/24 by Aleida Foreman LPN albuterol sulfate 90 mcg/actuation 2 puffs inhalation Q4H PRN albuterol sulfate 90 mcg/actuation (Ventolin HFA) 2 puffs inhalation QID PRN 30 days albuterol sulfate 2.5 mg (3 mL) inhalation Q6H PRN allopurinol 300 mg PO DAILY aspirin (Ecotrin Low Strength) 81 mg PO DAILY [id number] 160-9-4.8 mcg/actuation (Breztri Aerosphere) 2 inhalations inhalation BID 90 days chlorthalidone 12.5 mg PO DAILY Combivent Respimat 20-100 mcg/actuation (ipratropium-albuterol) 1 puff PO QID 90 days NS CPAP (CPAP Machine/Device) As directed diazepam mg PO doxycycline monohydrate 100 mg PO BID 21 days furosemide 20 mg PO DAILY lisinopril 20 mg PO DAILY metoprolol tartrate 12.5 mg PO BID montelukast 10 mg PO BEDTIME 90 days nebulizers As directed Oxygen Home Use As directed prednisone PO daily; Take 6 tabs daily x 3 days, then 5 tabs x 3 days, then 4 tabs x 3 days, then 3 tabs x 3 days, then 2 tabs daily x 3 days, then 1 tab x 3 days to complete. 18 days roflumilast (Daliresp) 500 mcg PO DAILY 30 days simvastatin 40 mg PO DAILY trazodone 100 mg PO BEDTIME 30 days HPI Comments Details: The patient is a 74-year-old gentleman known COPD, ELVIA on PAP therapy and tobacco dependency. He also has underlying pulmonary nodules that we have been following. His last CT scan of the chest at [facility] was done in September of 2018. His largest nodule measured 8 mm at that time. Also the nodule appeared to be subsolid nature. Recently he had a fall after losing consciousness. He did injure his lung on the right side with some increased work of breathing. He continues to smoke unfortunately. The patient was recently evaluated at [facility] for lower extremity swelling and shortness of breath. He had an ultrasound of his right lower extremity which demonstrated no evidence of any D VT and had a CT angiogram of the chest burning up pulmonary embolism. However, the nodule appeared to be more solid in nature now measuring 9 mm. This is concerning for a both change in growth and change in appearance in a short period of time. The patient does smoke and does have increased risk factors for cancer. At this point I will request a PET scan to further evaluate this nodule. At this point will going to go ahead and order her oxygen through a [employer] company for him to be able to use the oxygen with activity. The patient needs better portability. Will provide him with a conserving device trial in order for him to get smaller tanks. His PET scan was denied from his your insurance company for the 9 mm nodule for unclear reason. At this point the patient should get a CAT scan 3 months from his prior CT scan in March 16. If the nodule is larger in size and we need to get a PET scan at that time. 12/29/2022 the patient is here for a pulmonary follow-up visit. He continues to have shortness of breath. He has been using the oxygen. He is also using the BiPAP at nighttime. The PAP therapy continues to be affecting beneficial. The nebulizer as well. His nebulizer equipment is broken. I will supply him with 1. He still getting supplies also from [employer]. He does have a nebulizer for map is about 2 to 3 years old. If the machine stops working he will cough in order to send another script. The patient did have a CT scan sometime in October. The pulmonary nodules are stable. When follow-up in 6 months and discuss his next CT scan. The patient did have a new 4 mm pulmonary nodule. He also has extensive emphysema. He has a large bolus in the right lower lobe measuring close to 10 cm in size. 07/06/2023 the patient is here for a pulmonary follow-up visit. The patient has been doing fairly well. He has been using the oxygen at 2-3 L to maintain a pulse ox above 90%. Has been affecting beneficial. He also has been using the inhalers with good adherence. He also started Daliresp 250 mcg dose and is tolerating that well. Will go ahead and increase into the 100 mcg dose. The patient also has a CT scan from October 2022 that we did look at. It appears that he has a new nodule so will go ahead and repeat the CT scan October 2023. He is still working on smoking. He is cutting down significantly. This is reassuring. Will follow-up in 4-6 months. 11/30/2023 the patient is here for a pulmonary follow-up visit. The patient recently had CT scan of the chest which we personally reviewed. It appears that the right lower lobe demonstrates interval increasing pulmonary nodule now measuring 8 mm in size. Appears to be spiculated and concerning for malignancy. He has other pulmonary nodules that appear to be stable. He has emphysema. Jonh orourke continues to smoke and is high risk for cancer. He does have significant chronic respiratory failure on oxygen so therefore a PET scan be helpful to better address the metabolic activity of this nodule seen there is any spread of disease. If the PET scan positive then will definitely need to do a biopsy of some type. Likely CT-guided biopsy. If the PET scans negative in view of his significant comorbidities and respiratory failure probably wait and repeat the CT scan in 3 months time. Will have to undergo pulmonary function studies to see what his lung capacity is but already he has known severe COPD and chronic respiratory failure. Will continue with current respiratory therapy and is going to work on tobacco cessation. 12/29/2023 the patient is here for a pulmonary follow-up visit. The patient overall still about the same. Unfortunately continues to smoke cigarettes. He did have a pulmonary nodule in the right lower lobe with was concerning. He also has other subcentimeter pulmonary nodules primarily in the left upper lobe. In view of the larger nodule in the right lower lobe he did undergo a PET scan. We did review the PET scan together. He does have some increased FDG activity of 2.71. This nodule has increased in size and also his high risk because it smoking history we did talk about the possibility of malignant process. There is also a positive family history. I did give him the option of following up in 3 months or moving [address]-guided biopsy. The patient is high risk because he does have chronic respiratory failure on oxygen. The patient is concerned because his family history. Therefore, will go ahead and order a CT-guided biopsy at this time. The patient also will be presented at tumor conference. He did have also some mild activity in the left upper lobe nodule though is only 6 mm in size. He may not be a surgical candidate because of his respiratory failure although stereotactic radiation may be reasonable if in the this cancer. 01/26/2024 the patient is here for pulmonary follow-up visit. He is status post biopsy of the right lower lobe nodule. 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 His PET scan demonstrated just slight FDG activity of 2.7 of the right lower lobe nodule. The patient also had PFTs with a DLCO of only 35% predicted. Unfortunately continues to smoke cigarettes. He does want to quit. Based on the fact that his the DLCO so low PFTs are abnormal he is not a good surgical candidate. Therefore, I will refer him to Radiation Oncology and also Oncology at [facility] as he prefers. Patient will be a good candidate for stereotactic radiation. In the meantime struggling but his inhalers. He is using his albuterol weight 2 often every 2 hours. Will provide him with much support as possible but he can not take albuterol often it can result in other adverse effects. 04/11/2024 the patient is here for a pulmonary follow-up visit. He is status po st completion of his stereotactic radiation bilaterally. Now having significant pleuritic discomfort on his left side. It is reproducible. He has been trying some Lidoderm patches. No vesicles. He did complete antibiotics and also was taking prednisone. The prednisone did help but now he is down to 10 mg and he feels like he is getting worse. Will go ahead and start him again but will provide him with Solu-Medrol today to help him with any evidence of any radiation pneumonitis. In addition to that he continues uses respiratory therapy his oxygen good effect. Home undergo a chest x-ray today to see the progress. Will follow-up in 6-8 weeks. If he has any worsening symptoms will call for further recommendations. 04/17/2024 the patient is here for sick visit. She was seen last week he was started on doxycycline was given Solu-Medrol and prednisone for pleuritic discomfort on the right side. Initially felt a lot better but then started developing worsening symptoms again. This morning he felt very short of breath and he looked pale per his . They called in guarded sick visit. He is wondering should be in the hospital. The patient still has pleuritic discomfort primarily in the right side it does radiate to the back. We did review his chest x-ray from last week which has not been officially read as of yet shows possibly in the right middle lobe area set her an airspace disease. No significant fluid production. No abnormalities in the vascular structures. And no significant interstitial changes. Therefore, will have him go for blood work including a D-dimer. If D-dimer is elevated we need to consider blood clots. The patient understands that if he develops worsening symptoms and if he is not responding to the current therapy he needs to go to the ED. He rather go to [facility] and that is okay. Addendum: The patient did have blood work done including a D-dimer that was significantly elevated at 660. With his right-sided pleuritic discomfort and his ongoing shortness of breath and hypoxia he will need an urgent CTA. Will try to get as soon as possible. If the patient's symptoms worsen prior to his scheduled appointment the patient will need to going to the ER for an urgent evaluation. [facility] Medical History (Updated 04/17/24 @ 13:54 by Brett Keith MD) Chest pain Pulmonary nodule Pulmonary nodules COPD (chronic obstructive pulmonary disease) ELVIA treated with BiPAP Tobacco dependence Surgical History (Updated 01/17/24 @ 12:36 by Mariana Romero PA-C) History of lung biopsy Social History Patient Tobacco Use Status: Former Tobacco user Tobacco use type: Cigarette Years Smoked: 12 years old Review of Systems Const Denies fever(s) and Denies night sweats ENT Denies change in voice, Denies lip swelling, Denies mouth pain, Reports nasal congestion, Reports nasal discharge and Denies tongue swelling Card Reports chest pain, Reports dyspnea and Reports dyspnea on exertion Resp Reports cough, Reports pain on inspiration, Reports pain with cough, Reports dyspnea and Reports dyspnea on exertion GI Denies abdominal pain Musc Denies no additional complaints Neuro Denies Neuro-related abnormal movements Psych Denies no additional complaints Romeo/Lymph Denies easy bleeding and Denies lymphadenopathy Aller/Immun Denies lip swelling and Denies tongue swelling Physical Exam Vital Signs: Last Vital Signs Pulse 104 H 04/17/24 10:59 BP 126/70 04/17/24 10:59 Pulse Ox 93 04/17/24 10:59 Oxygen Delivery Method Nasal Cannula 04/17/24 10:59 Oxygen Flow Rate 3 04/17/24 10:59 Const General: alert Neck Neck: Yes normal visual inspection, Yes full ROM and Yes no lymphadenopathy Chest Chest palpation & inspection: tenderness rib (left) Resp Effort & Inspection: prolonged expiratory phase Auscultation: no wheezes and diminished lung sounds Cardio Rate: regular rate Rhythm: regular rhythm Heart sounds: S1 normal heart sound present and S2 normal heart sound present GI Palpation (GI): Soft to palpation and nontender Auscultation: normal bowel sounds Skin General skin exam: rashes and/or lesions noted Office Meds methylprednisolone sod suc(PF) 125 mg/2 mL solution for injection Performing Provider: Brett Keith MD Performing Location: [facility] Pulmonology [facility] Administered by: Aleida Foreman LPN on 04/17/24 11:41 Dose Route Admin Location Dispensed Lot Number Expiration Date NDC Senior Budget Analyst 125 mg IM rt buttock 2 ea [id number] 01/20/26 1291-7909-14 [employer] Comments: Solumedrol 125mg/2ml given. Quality Reporting (2019) Adult ([facility] 138/07/14/68) Smoking risk assessment performed?: Yes Patient Tobacco Use Status: Former Tobacco user Results Reviewed Results Reviewed: personally reviewed CXR 04/11/2024 with ?opacity in the RML distribution Assessment & Plan Assessment & Plan (1) Pleuritis: Code(s): R09.1 - Pleurisy Category: Medical (2) Chest pain: Code(s): R07.9 - Chest pain, unspecified Category: Medical Qualifiers: Chest pain type: unspecified Qualified Code(s): R07.9 - Chest pain, unspecified (3) 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: Onset Date: ~2023 Code(s): C34.31 - Malignant neoplasm of lower lobe, right bronchus or lung Category: Medical (4) Pulmonary nodules: Code(s): R91.8 - Other nonspecific abnormal finding of lung field Category: Medical (5) Tobacco dependence: Code(s): F17.200 - Nicotine dependence, unspecified, uncomplicated Category: Medical (6) ELVIA treated with BiPAP: Code(s): G47.33 - Obstructive sleep apnea (adult) (pediatric) Category: Medical (7) COPD (chronic obstructive pulmonary disease): Comment: extensive emphysema, FEV1 30% Code(s): J44.9 - Chronic obstructive pulmonary disease, unspecified Category: Medical Qualifiers: COPD type: emphysema Emphysema type: centrilobular Qualified Code(s): J43.2 - Centrilobular emphysema (8) Pulmonary nodule: Comment: now 9mm in size concerning for malignancy Code(s): R91.1 - Solitary pulmonary nodule Category: Medical Plan solumedrol->prednisone taper, likely will keep on 20 mg daily Add Levaquin Doxycycline lidoderm patches to affected area Bloodwork with +ddimer, needs urgent CTA continue Breztri continue DuoNeb as needed continue Combivent Tobacco cessation continue Daliresp 500 Continue BIPAP at night continue oxygen with activity. follow-up in 4-6 weeks Orders: Orders Complete Blood Count Auto Diff Today R07.9 - Chest pain, unspecified, R09.1 - Pleurisy Erythrocyte Sedimentation Rate Today R07.9 - Chest pain, unspecified, R09.1 - Pleurisy Troponin-I High Sensitivity Today R07.9 - Chest pain, unspecified, R09.1 - Pleurisy D Dimer High Sensitivity Today R07.9 - Chest pain, unspecified, R09.1 - Pleurisy Basic Metabolic Panel Today R07.9 - Chest pain, unspecified, R09.1 - Pleurisy Venous Blood Gas Today R07.9 - Chest pain, unspecified, R09.1 - Pleurisy AMB Methylprednisolone Sod Succ Injection Today J43.2 - Centrilobular emphysema Medications: New levofloxacin 500 mg PO DAILY 10 tabs 0RF 10 days Coding Level of Care Code Est Pt Level 5 (60602) Diagnoses Pleuritis R09.1 Chest pain, unspecified type R07.9 Chest pain type: unspecified 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 C34.31 Pulmonary nodules R91.8 Tobacco dependence F17.200 ELVIA treated with BiPAP G47.33 Centrilobular emphysema J43.2 COPD type: emphysema Emphysema type: centrilobular Pulmonary nodule R91.1 Time Spent (min) 30
[2024-04-17 10:59] VITALS: BP 126/70; PULSE 104; O2SAT 93
== END 2024-04-17 13:47 | disposition home or self-care (01) ==
PROVIDERS: PCP Internal Medicine; Visit Provider Hospitalist
DX: R09.1 Pleurisy (principal); J43.2 Centrilobular emphysema; R07.9 Chest pain, unspecified; C34.31 Malignant neoplasm of lower lobe, right bronchus or lung; F17.210 Nicotine dependence, cigarettes, uncomplicated; G47.33 Obstructive sleep apnea (adult) (pediatric)
CPT/HCPCS: 99214

== ENCOUNTER → 2024-04-17 10:50 | Outpatient (BNVA) | payer BC, MEDICARE, SELFPAY | PROVIDERS: PCP Internal Medicine; Visit Provider Hospitalist ==

== ENCOUNTER 2024-04-17 11:38 | Outpatient (REF) | payer BC, MEDICARE, SELFPAY ==
[2024-04-17 12:10] LABS: Basophils Percent Auto 0.1 % (0-2); Eosinophils Percent Auto 0.1 % (0-4); Hematocrit 43.4 % (42.0-52.0); Hemoglobin 14.8 g/dl (14.0-18.0); Imm Gran Abs Auto 0.04 X10*3/uL (0.00-0.03); Imm Gran Pct Auto 0.4 % (0.0-0.4); Lymphocytes Absolute Auto 0.3 X10*3/uL (1.2-4.9); Lymphocytes Percent Auto 2.7 % (20-40); MANUAL DIFF FLAG SCAN; Mean Corpuscular HGB Conc 34.1 g/dl (31.0-36.0); Mean Corpuscular Hemoglobin 30.7 pg (27.0-33.0); Mean Platelet Volume 10.4 fL (9.4-12.4); Monocytes Absolute Auto 0.1 X10*3/uL (0.1-1.2); Monocytes Percent Auto 1.3 % (2-11); Neutrophils Absolute Auto 10.1 x10*3/uL (2.0-8.3); Neutrophils Percent Auto 95.4 % (45-73); Platelet Count 159 X10*3/uL (160-400); Red Blood Count 4.82 X10*6/uL (4.60-5.80); Red Cell Distribution Width 14.3 % (11.0-16.0); SCAN SMEAR FLAG 1; White Blood Count 10.6 X10*3/uL (4.8-10.8)
[2024-04-17 12:11] LABS: Venous Blood Gas Refer to POC result
[2024-04-17 12:17] LABS: VBG Base Excess 9.3 mmol/L; VBG HCO3 34 mmol/L (22-26); VBG pCO2 48 mmHg; VBG pH 7.46 (7.32-7.43); VBG pO2 60 mmHg
[2024-04-17 12:31] LABS: Anion Gap 15 (12-20); Blood Urea Nitrogen 21 mg/dL (9-16); Calcium 10.1 mg/dL (8.4-10.2); Carbon Dioxide 29 mmol/L (22-29); Chloride 96 mmol/L (96-108); Estimated Glomerular Filt Rate > 60; Glucose Random 227 mg/dL (60-115); Sodium 136 mmol/L (135-145)
[2024-04-17 12:35] LABS: Troponin-I High Sensitivity 9.8 ng/L (<3.5-35.0)
[2024-04-17 12:49] LABS: Erythrocyte Sedimentation Rate 7 MM/HR (0-15)
[2024-04-17 13:11] LABS: D Dimer High Sensitivity 660 NG/ML
[2024-04-17 13:16] LABS: SLIDE REVIEW VERIFIED
== END 2024-04-17 11:39 | disposition home or self-care (01) ==
LOC: HO.LAB 11:38
PROVIDERS: PCP Internal Medicine; Visit Provider Hospitalist
DX: R09.1 Pleurisy (principal); R07.9 Chest pain, unspecified; C34.31 Malignant neoplasm of lower lobe, right bronchus or lung; R91.8 Other nonspecific abnormal finding of lung field; G47.33 Obstructive sleep apnea (adult) (pediatric); J43.2 Centrilobular emphysema; F17.200 Nicotine dependence, unspecified, uncomplicated
CPT/HCPCS: 36415; 80048; 82803; 84484; 85025; 85379; 85652; 96372; J2919

== ENCOUNTER 2024-04-18 14:47 | Outpatient (REF) | payer BC, MEDICARE, SELFPAY ==
--- NOTE | ~2024-04-18 | CT_ITS ---
EXAMINATION: CT ANGIOGRAM OF THE CHEST WITH AND WITHOUT CONTRAST (CT PULMONARY ANGIOGRAM FOR PE) CLINICAL INFORMATION: Chest pain COMPARISON: Chest CT scan 10/24/2023 and selected images from prior studies. Most recent plain radiography 04/11/2024 and selected prior images. TECHNIQUE: Prior to contrast administration, noncontrast localization images were obtained. Subsequently, multidetector volumetric imaging was performed from the thoracic inlet to below the diaphragms following the administration of 65 mL Omnipaque 350 intravenous contrast. No contrast reaction reported Sagittal, coronal, and MIP oblique sagittal reformatted images were obtained on the CT workstation, uploaded to PACS, and reviewed. Total exam dose-length product 471 mGy-cm. Left arm at side results in artifact. This CT examination was performed using dose optimization techniques as appropriate, variously including the following: * Automated exposure control * Adjustment of mA and/or kV according to patient size (this includes techniques or standardized protocols for targeted exams where dose is matched to indication/reason for exam; i.e. extremities or head) * Use of iterative reconstruction technique FINDINGS: QUALITY OF STUDY/CONTRAST BOLUS: Adequate PULMONARY ARTERIES: No central or segmental pulmonary emboli. Beam hardening artifact limits the sensitivity for subsegmental emboli. THORACIC AORTA: Uniform enhancement with moderate atherosclerotic disease. No aneurysm or dissection identified. LUNG: Severe bullous emphysema. Metallic artifact in previously biopsied left apical lung nodule. Metallic artifact in previously biopsied right lower lobe lung nodule. Correlate with pathology results. Progressive subsegmental atelectasis in the lingula. No discrete endobronchial lesion. PLEURA: There is a new, 2 cm right pleural mass (series 5 image 32/64) of uncertain etiology. This could represent a primary pleural tumor, a metastatic deposit, or loculated effusion. No significant effusion following 01/12/2024 right lung biopsy. Further evaluation of this new pleural mass is advised. Note is made of a right posterior 8th rib pathologic fracture with underlying lysis and sclerosis. Given close proximity to the previously biopsied pulmonary nodule this could represent either posttreatment change from external beam radiation, a radiation-induced tumor, or progression of underlying pulmonary malignancy. Clinical correlation is advised. MEDIASTINUM: No mediastinal mass or adenopathy. Mild coronary disease. Cardiac chambers grossly within normal limits. No evidence of septal bowing or right heart strain. CHEST WALL/AXILLA: Asymmetric, mild right greater than left gynecomastia. Slight progression from prior. No axillary adenopathy. OSSEOUS STRUCTURES: There are lytic changes in the 7th and 8th dorsal vertebral bodies. These lie near the level of the previously noted right lower lobe lung lesion. There is breakthrough of the inferior 7th vertebral body endplate. Again, differential considerations include metastatic disease versus posttreatment change. UPPER ABDOMEN: Atherosclerotic peripheral vascular disease. Diverticulosis. No reflux of contrast into the hepatic veins to suggest elevated right heart pressures. CT/CT angio chest PE protocol IMPRESSION: 1. Pulmonary nodules with radiopaque markers. 2. New pathologic right posterior 8th rib fracture. 3. New lytic lesions in the 7th and 8th vertebral bodies. 4. A 2 cm right pleural mass. Cannot differentiate between recurrent disease and posttreatment change. Clinical correlation is advised. Tissue characterization may be required. 5. Severe emphysema. 6. No pulmonary embolism identified. Examination somewhat limited by artifact, cannot exclude subsegmental disease. If there is strong clinical concern advise bilateral leg ultrasound or repeat study. VTE: negative Electronically signed by: Aristeo Castillo MD 04/19/2024 01:04 PM [facility]
[2024-04-18] MEDS: iohexoL 350 MG/ML 100 ML INFUS..BTL IV (15:32)
== END 2024-04-18 14:48 | disposition home or self-care (01) ==
LOC: HO.CT 14:47
PROVIDERS: PCP Internal Medicine; Visit Provider Hospitalist
DX: R07.9 Chest pain, unspecified (principal)
CPT/HCPCS: 71275; Q9967